=== PATIENT | male | born 1945 | race Caucasian/White ===

== ENCOUNTER 2024-06-30 05:18 | Inpatient (IN) | payer MEDICARE, SELFPAY ==
[2024-06-30] VITALS (16 sets, daily range): BP systolic 103–140; BP diastolic 49–116; BMI 43.4; BMI 43.5
[2024-06-30 01:25] LABS: % Basophils 0.4 % (0-2); % Eosinophils 0.2 % (0-6); % Immature Granulocytes 0.5 % (0-0.5); % Lymphocytes 3.4 % (20.5-51.1); % Monocytes 5.1 % (1.7-9.3); % Neutrophils 90.4 % (42.2-75.2); Absolute Basophils 0.1 10^3/uL (0-0.2); Absolute Immature Granulocytes 0.1 10^3/uL (0-0.05); Absolute Lymphocytes 0.5 10^3/uL (1.2-3.4); Absolute Monocytes 0.7 10^3/uL (0.1-0.6); Absolute Neutrophils 12.3 10^3/uL (1.4-6.5); Hematocrit 45.7 % (39.0-52.0); Hemoglobin 15.7 g/dL (13.0-18.0); Mean Corp Hgb Conc. 34.4 g/dL (33.0-37.0); Mean Corpuscular Hgb 32.3 pg (27.0-31.0); Mean Platelet Volume 9.6 fL (7.4-10.4); Nucleated Red Blood Cells % 0 % (-); Platelet Count 173 10^3/uL (130-400); Red Blood Cell Count 4.86 10^6/uL (4.70-6.10); Red Cell Dist. Width 14.5 % (11.5-14.5); White Blood Cell Count 13.6 10^3/uL (4.8-10.8)
[2024-06-30 01:54] LABS: COVID-19 Antigen Negative (Negative)
[2024-06-30 02:08] LABS: Urine Albumin 3+ (Neg - Trace); Urine Bilirubin Negative (Negative); Urine Character Clear (Clear); Urine Color Yellow; Urine Glucose Negative (Negative); Urine Ketone 2+ (Negative); Urine Leukocyte Negative (Negative); Urine Nitrite Negative (Negative); Urine Occult Blood 3+ (Negative); Urine Urobilinogen Negative (Neg - 1+)
[2024-06-30 02:22] LABS: ALT (SGPT) 17 U/L (0-50); AST (SGOT) 29 U/L (17-59); Albumin 3.8 g/dl (3.5-5.0); Alkaline Phosphatase 58 U/L (38-126); Blood Urea Nitrogen 22 mg/dl (9-20); Calcium 7.9 mg/dl (8.4-10.2); Carbon Dioxide 24 mmol/L (22-30); Chloride 106 mmol/L (98-107); Estimated Creatinine Clearance 114 ml/min; Glucose 99 mg/dl (70-99); Sodium 139 mmol/L (135-145); Total Bilirubin 2.8 mg/dl (0.2-1.3); Total Protein 5.8 g/dl (6.3-8.2); Urine Bacteria Moderate (Negative); Urine Mucus Few; eGFR > 60.00
--- NOTE | 2024-06-30 02:32 | ED.GENMED ---
History of Present Illness
General
Chief Complaint: Weakness
Time Seen by Provider: 06/30/24 00:55
History of Present Illness
History of Present Illness:
78-year-old male with history of CHF, hypertension, hyperlipidemia, A-fib on Eliquis, BPH presenting for generalized weakness. Patient reports that he has been feeling well with chills and cough. Prior to arrival, reports generalized weakness
where his legs gave out and he fell forward, landing on his knees. Denies head injury or loss of consciousness. He was unable to get up so called the ambulance. He denies chest pain or difficulty breathing. Denies abdominal pain. Denies any
burning with urination. Does report some left knee pain after the fall. Denies any known sick contacts. Reports chronic swelling to his lower extremities. Denies any increased swelling. Denies additional acute medical complaints
Past History
Past History
ED Past Medical History: Arrthythmia (Paroxysmal atrial fibrillation), HTN, Hypercholesterolemia and Other (BPH, IBS, kidney stones, venous stasis)
ED Past Surgical History: Appendectomy, Orthopedic (Left hand surgery) and Tonsilectomy
Social History
Tobacco: Former smoker (Many years ago)
Alcohol: Occasional
Personal: ( 3 months ago)
Living: with family (With daughter)
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
Family History
Family History: Other (Noncontributory)
Phy Exam
Physical Exam
Physical Exam:
General: Well-appearing, no clinical signs of dehydration, nontoxic and in no acute distress
HEENT: protecting airway
Neck: appears supple, no midline tenderness
CV: Normal heart rate, regular rhythm
Resp: No accessory muscle use, no increased work of breathing, lungs clear to auscultation bilaterally
Abd: Soft and non-distended, no tenderness to palpation
Extremities: No deformities, bruising over the left patellar region with pain on palpation. Range of motion limited secondary to pain. No tenderness to the hip joint
Neuro: alert, no focal neurologic deficit
: deferred
Rectal: deferred
Psych: Normal affect
Skin: Intact
Course
Orders/Labs/Results
Orders:
Orders
06/30/24 01:04
Complete Blood Count/With Diff Urgent
06/30/24 01:13
CR Chest - 2 Views Urgent
Comment:
Reason For Exam: cough
06/30/24 01:16
COVID-19 Antigen Urgent
Source: Nasal Swab
Influenza A+B Rapid Molecular Urgent
PARMINDER Source: Nasal Swab
Specimen Description:
06/30/24 01:24
Electrocardiogram (*1) Urgent
Reason for Study: Syncope
EKG- Treatment ONCE
06/30/24 01:59
Comprehensive Metabolic Panel Urgent
Troponin I Urgent
Urinalysis Reflex To Culture Urgent
Date Specimen was Collected: 06/30/24
Time Specimen was Collected: 01:52
Urine Microscopic Reflex Cult Urgent
Urine Culture Urgent
PARMINDER Source: U
Specimen Description:
Date Specimen was Collected: 06/30/24
Time Specimen was Collected: 01:52
06/30/24 02:03
CR Knee - Left 4 Or More View* Urgent
Comment:
Reason For Exam: fall
06/30/24 02:58
Azithromycin 500 mg/250 ml [Zithromax Infusion] 500 mg in 250 ml IV NOW
CefTRIAXone [Rocephin] 1,000 mg IV NOW STA
Abnormal Lab Results
06/30/24 06/30/24
01:04 01:59
WBC 13.6 H 10^3/uL
(4.8-10.8)
MCH 32.3 H pg
(27.0-31.0)
Abs Immat Gran (auto) 0.1 H 10^3/uL
(0-0.05)
Absolute Neuts (auto) 12.3 H 10^3/uL
(1.4-6.5)
Absolute Lymphs (auto) 0.5 L 10^3/uL
(1.2-3.4)
Absolute Monos (auto) 0.7 H 10^3/uL
(0.1-0.6)
Neutrophils % 90.4 H %
(42.2-75.2)
Lymphocytes % 3.4 L %
(20.5-51.1)
BUN 22 H mg/dl
(9-20)
Calcium 7.9 L mg/dl
(8.4-10.2)
Total Bilirubin 2.8 H mg/dl
(0.2-1.3)
Total Protein 5.8 L g/dl
(6.3-8.2)
Urine Ketones 2+ A
(Negative)
Ur Occult Blood Reflex 3+ A
(Negative)
Urine RBC 7-10 A /HPF
(0-2)
Urine Bacteria (Reflex) Moderate A
(Negative)
Urine Albumin (Reflex) 3+ A
(Neg - Trace)
06/30/24 01:04
06/30/24 01:59
Vital Signs
Initial and Last Documented VS:
Initial Vital Signs
Temp Pulse Resp BP Pulse Ox
98.2 F 86 17 113/63 95
06/30/24 00:54 06/30/24 00:54 06/30/24 00:54 06/30/24 00:54 06/30/24 00:54
Last Documented Vital Signs
Temp Pulse Resp BP Pulse Ox
99.0 F 82 25 115/62 97
06/30/24 02:48 06/30/24 02:19 06/30/24 02:46 06/30/24 02:45 06/30/24 02:46
MDM/Problems Addressed
MDM/Problems Addressed:
78-year-old male with history of hypertension, hyperlipoidemia, A-fib on Eliquis, BPH presenting after a fall with generalized weakness and inability to ambulate. Vital signs on arrival are normal.
On exam patient is resting comfortably, no acute distress or discomfort. Patient reports the reason he fell was because he had a generalized weakness, and his legs gave out. Notes that he has generally been feeling unwell in the past 2 days,
chills, cough. This reason, suspected infectious quality patient symptoms. Possible viral syndrome versus pneumonia. Will obtain chest x-ray imaging and viral swab. Patient notes that he did not strike his head, no signs of head trauma, no
tenderness to the midline cervical spine. No indication for advanced head imaging. Patient does have a pacemaker, so will interrogate to ensure no normal events that may have caused his fall. Patient with BPH. Will check urinalysis to ensure no
signs of UTI. Will check flu and COVID. Only signs of injury from fall is some bruising to the left knee, suspect musculoskeletal quality. Patient with limited range of motion. Will obtain x-ray.
2:45 - Patient's labs relatively unremarkable. Mild leukocytosis. Chest x-ray with possible RLL pneumonia. Will treat for CAP. COVID and flu negative. Normal chemistry panel with elevated T. bili, however appears to have chronic elevation of
bilirubin. No tenderness to abdomen or concern for acute intra-abdominal pathology. Pacemaker interrogated, no events today. Continue to suspect possible viral syndrome. Patient at this time unable to ambulate. Safe disposition home. Plan for
admission for PT/OT consultation, possible SNF
*EKG
Interpreted by ED Provider?: Yes
EKG Intrepretation Date: 06/30/24
EKG Intrepretation Time: 02:38
Interpretation: normal
Comparison EKG: no changes (02/19/23)
Heart Rate: 103
Rate: tachycardiac
Rhythm: sinus
[place]: normal axis
QRS Pattern: normal QRS
Ischemia: no ischemia
*Critical Care Note
Total Time (30-74mins, 75-104mins- exclusive of procedures): Not Applicable
ED Attending Note
-
Portions of this chart may have been created with voice recognition software.� Occasional wrong word or��sound alike� substitutions may have occurred due to the inherent limitations of voice recognition software.
Discharge Plan
Departure
Prescriptions:
No Action
allopurinol 300 MG tablet
300 mg PO DAILY
dutasteride 0.5 MG capsule
0.5 mg PO DAILY
Xarelto 20 MG tablet
20 mg PO HS
tamsulosin 0.4 MG capsule
0.4 mg PO DAILY
potassium chloride 10 mEq Capsule, Extended Release
10 meq PO DAILY
dofetilide 500 mcg Capsule
500 mcg PO Q12H
sacubitril-valsartan [Entresto] 49-51 mg Tablet
1 tab PO BID
carvedilol 6.25 mg Tablet
6.25 mg PO BID
Interventions
Interventions:
*Risk Screen - Suicide Last Done: 06/30/24 00:50
*General Assessment Last Done: 06/30/24 00:50
*Neglect/Abuse Screening Last Done: 06/30/24 00:50
ED- Fall Risk Assessment Last Done: 06/30/24 00:50
*ED COVID-19 Vaccine History Last Done: 06/30/24 00:50
ED- Cardiac Assessment Last Done: 06/30/24 01:01
ED- Neurological Assessment Last Done: 06/30/24 01:01
ED- Pulmonary Assessment Last Done: 06/30/24 01:01
Discharge Date and Time
Print Language: SINGAPOREAN
[2024-06-30 03:12] LABS: Troponin I 0.074 ng/ml
[2024-06-30] MEDS: ROCEPHIN 1000 MG IV (04:22)
[2024-06-30] MEDS: ZITHROMAX INFUSION 250 IV (04:23)
[2024-06-30] MEDS: NSS 1000 IV (04:23)
--- NOTE | 2024-06-30 04:49 | HPS.HSE ---
Family Physician
-
Family Physician: ROJELIO Baltazar
Chief Complaint
-
Falls and weakness
History of Present Illness
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
the emergency department with acute episode of weakness and then fall with knee injuries bilaterally.
The patient reported being in usual state of health up until 1 year ago when he suddenly felt weak and had difficulty walking due to the weakness. He reports that due to the weakness he was trying to move a chair in his room when he fell and landed
on his knee bilaterally and was unable to get up. He did not strike his head. He denied having any episode of chest pain, palpitations dizziness or lightheadedness. He denies shortness of breath or pleuritic chest pain. After the fall he had an
episode of shaking chills prior to coming to the emergency department.
Patient reports cough that is productive but has been going on for several months and he says is essentially unchanged. He denies having fevers at home. He has no known sick contacts. He had 1 episode of diarrhea that lasted for 1 hour earlier in
the week but was otherwise asymptomatic. Denies any vomiting. Patient denies any rash. He reports chronic lower extremity swelling due to chronic lymphedema which has not changed recently.
He he has chronic BPH with some difficulty with urination but denies any new symptoms such as dysuria, flank pain, fevers or chills.
In the emergency department he was afebrile, he was satting 99% on 2 L. Blood pressure was 110/63 with a pulse of 83. Troponin was 0.074. ECG is a paced rhythm at [address] or T wave changes. CBC notable for leukocytosis to 13,000
but otherwise unremarkable. Electrolytes BUN/creatinine were all within normal range. UA is nondiagnostic with few bacteria but negative nitrites leukocyte Estrace and few squamous. Negative COVID and influenza.
X-rays of the knee shows no dislocations or fractures. Chest x-ray is inconclusive due to body habitus but there is possible right lower lobe infiltrate.
Medical History
Past Medical History
Past Medical History: Reports Arrhythmia (Proximal atrial fibrillation, heart block/sinus pause status post pacemaker), CHF (preserved EF), HTN, Hypercholesterolemia and Other (BPH)
Past Surgical History: Reports Other
Social History
Tobacco: Former Smoker (quit 50 yrs ago)
Alcohol: Occasional
Drug: None
Personal:
Living: With Family
Employment: Retired
Family History
Family History: Not pertinent
Allergies / Home Medications
Allergies reflects when Allergies were last updated in [facility].
Home Medications with original date entered in [facility]
Allergy/Medication List:
Allergies
Allergy/AdvReac Type Severity Reaction Status Date / Time
Cephalosporins Allergy Unknown Verified 06/30/24 00:53
influenza virus vaccine, Allergy gets 'sick Verified 06/30/24 00:53
specific from it
Penicillins Allergy Diarrhea Verified 06/30/24 00:53
pneumococcal vaccine Allergy flu like Verified 06/30/24 00:53
[Pneumococcal Vaccine] symptoms
GRAPE JUICE Allergy Diarrhea Uncoded 06/30/24 00:53
no artificial sweetners Allergy diarrhea Uncoded 06/30/24 00:53
Orlon Allergy Unknown Uncoded 06/30/24 00:53
Home Medications
allopurinol 300 mg tablet 300 mg PO DAILY Gout 12/19/12
dutasteride 0.5 mg capsule 0.5 mg PO DAILY BPH 12/19/12
rivaroxaban 20 mg tablet (Xarelto) 20 mg PO HS Blood Clot Prevention/Tx 12/19/12
tamsulosin 0.4 mg capsule 0.4 mg PO DAILY BPH 12/04/13
dofetilide 500 mcg capsule 500 mcg PO Q12H Arrhythmia 01/16/23
potassium chloride 10 mEq capsule,extended release 10 meq PO DAILY Electrolyte Repletion 01/16/23
sacubitril 49 mg-valsartan 51 mg tablet (Entresto) 1 tab PO BID Heart Disease/Condition 01/16/23
carvedilol 6.25 mg tablet 6.25 mg PO BID 01/17/23
Review of Systems
-
Constitutional: Reports Chills
EENT: Reports No Symptoms
Respiratory: Reports Cough
Cardiac: Reports No Symptoms
Abdomen/GI: Reports No Symptoms
: Reports No Symptoms
Musculoskeletal: Reports Joint Pain
Skin: Reports No Symptoms
Neurological: Reports Weakness
Endocrine: Reports No Symptoms
Hematologic/Lymphatic: Reports No Symptoms
Psych: Reports No Symptoms
Physical Exam
Vital Signs
Vital Signs
Temp Pulse Resp BP Pulse Ox
99.0 F 83 25 110/63 98
06/30/24 02:48 06/30/24 04:15 06/30/24 04:15 06/30/24 04:00 06/30/24 04:15
Physical Exam
General: Well Developed, Well Nourished, No Apparent Distress and Conversant
HEENT: NormoCephalic, Anicteric, Moist mucous membranes, Atraumatic, PERRLA, No Ptosis and Oxygen
Respiratory: Clear, Non Labored Respirations and Decreased Breath Sounds
Cardiac: S1/S2, Regular Rhythm and Peripheral Edema
GI: Soft, Non Tender and Normal Bowel Sounds
Rectal: Deferred by Provider
Genito-urinary: Deferred by me
Musculoskeletal: No Clubbing, No Cyanosis, Edema, Left Lower Extremity and Edema, Right Lower Extremity
Skin: Warm
Neuro: AO x 3 and Nonfocal/grossly intact
Hematologic/Lymphatic: No Lymphadenopathy
Psych: Calm
Laboratory Results
-
06/30/24 01:04
06/30/24 01:59
Laboratory Results
Total Bilirubin 2.8 mg/dl (0.2-1.3) H 06/30/24 01:59
AST 29 U/L (17-59) 06/30/24 01:59
ALT 17 U/L (0-50) 06/30/24 01:59
Alkaline Phosphatase 58 U/L (38-126) 06/30/24 01:59
Troponin I 0.074 ng/ml H* 06/30/24 01:59
Data Reviewed
-
Diagnostic Radiology: Image Personally Visualized and interpreted
Medical Tests (Nuc Med, Echo, EKG etc): Image Personally Visualized and interpreted
Lab Data: Labs Reviewed by me
Old Records: Reviewed
Impression/Plan
-
IMPRESSION:
78 y.o with sudden weakness, cough, chills and a possible RLL infiltrate. Negative flu/covid test. U/A is negative for UTI. Appears euvolemic on exam. Labs stable except for mild trop elevation to 0.07 w/o chest pain or exertional dyspnea.
PLAN:
1. Weakness - Presumed RLL pna. Sudden onset about 24 hours ago.
- admit to telemetry
- check procalcitonin
- continue ceftriaxone/azithromycin for now
- monitor respiratory status
- cough suppression and supprotive measures
- O2 prn (h/o DANIEL not compliant with CPAP)
- PT eval
2. Troponin elevation - No chest pain, ecg changes, nausea/diaphoresis. Unlikley obstructive myocardial injury. Possibly 2/2 infection
- trend troponin
- continue Xarelto for now
- treat with abx as above
-
3. pAFIB
- continue dofetilide, carvedilol
- continue Xarelto
4. CHF - stable
- continue entresto
- continue carvedilol
BPH
- continue tamsulosin and dutasteride
DVT PPX - on Xarelto
Code status - full code
[2024-06-30] MEDS: ZYLOPRIM 300 MG PO (08:18)
[2024-06-30] MEDS: FLOMAX 0.4 MG PO (08:18)
[2024-06-30 09:01] LABS: Troponin I 0.251 ng/ml
[2024-06-30] MEDS: ENTRESTO 49 MG/51 MG 1 TAB PO ×2 (09:36→21:15)
[2024-06-30] MEDS: TIKOSYN 500 MCG PO ×2 (09:36→21:14)
[2024-06-30] MEDS: PROSCAR 5 MG PO (09:41)
[2024-06-30] MEDS: COREG 6.25 MG PO ×2 (10:42→21:13)
[2024-06-30 12:55] LABS: Troponin I 0.184 ng/ml
--- NOTE | 2024-06-30 14:23 | W.PN.HOSP.TC ---
Today's Communication/Plan
-
Cardiology eval
ECHO
PT OT
Francisco bandages lower extremity
Assessment / Plan
Assessment / Plan
78-year-old man with weakness and fall he has morbid obesity and has difficulty walking. He has a productive cough for the past several months
EKG- ATRIAL FIBRILLATION WITH FREQUENT ventricular-paced complexes
T WAVE ABNORMALITY, CONSIDER ANTEROLATERAL ISCHEMIA
T WAVE INVERSION NOW EVIDENT IN ANTEROLATERAL LEADS
CVS: S1-S2 regular
Chest: CTA B/L
Abdomen: Soft, NT / Bowel sounds present
Extremities: Bilateral lower extremity edema left more than right. Chronic venous changes of lower extremities
TRAINMAN: Awake alert and communicating
# Generalized weakness/fall
Knee x-ray degenerative changes. No fracture
Chest x-ray without any pneumonia
Unclear if he had a viral infection
# Slightly elevated troponin-trending down
Cardiology evaluation
Check echo
# Chronic venous stasis changes of lower extremity. Patient states that he cannot take Lasix because he goes to the bathroom too many times. Francisco bandages ordered.
# Pacemaker
# Paroxysmal atrial fibrillation-continue dofetilide, Coreg and Xarelto
History of cardioversion in the past
# Unclear if the patient has CHF-he is on Entresto-cardiology to evaluate
# Enlarged prostate-continue Flomax and dutasteride
# Morbid obesity with a BMI of 43
# Likely has Sleep apnea- Says he needs a seep study
# Diverticulosis
# Nephrolithiasis
# Gout-continue allopurinol
# Ex-smoker
# DVT prophylaxis-continue Xarelto
# Full code
Patient saturations were 100% on 1 L of oxygen I took him off and saturations were 98-99%. Unclear why this was placed
Discussed with daughter and updated
Anticipated Discharge: Within 24 hours
Subjective/Interval History
-
Date of Service: June 30, 2024
Objective Data
-
Labs:
Laboratory Results
06/30/24
01:59
Sodium 139
Potassium 4.0
Chloride 106
Carbon Dioxide 24
BUN 22 H
Creatinine 0.7
Glucose 99
Calcium 7.9 L
Total Bilirubin 2.8 H
AST 29
ALT 17
Alkaline Phosphatase 58
Vital Signs:
Vital Signs
Temp Pulse Resp BP Pulse Ox
98.6 F 76 26 128/74 98
06/30/24 10:49 06/30/24 13:45 06/30/24 13:45 06/30/24 13:00 06/30/24 13:30
I&O
06/29/24 06/30/24 07/01/24
06:59 06:59 06:59
Intake Total 240 / 240
Output Total 150 / 150
Balance 90 / 90
--- NOTE | 2024-06-30 15:16 | CON.CAR ---
Addendum entered and electronically signed by Rogelio Dozier MD 06/30/24 16:49:
Patient seen and examined in collaboration with LEHR LOADER; agree with below.
-78-year-old male with paroxysmal atrial fibrillation (on Xarelto and dofetilide), pacemaker, and hypertension admitted with pneumonia; Cardiology consulted for elevated troponin.
-Echocardiogram today shows overall normal cardiac function.
-Troponin elevation is most likely secondary to acute nonischemic myocardial injury in the setting of pneumonia and elevated blood pressure (140/116 mmHg).
-Continue current doses of dofetilide and carvedilol for rhythm management.
-The patient can follow-up with his primary Residential Appliance Repair Technician as an outpatient; no further cardiac recommendations at this time.
-Treatment of pneumonia as per primary team.
Original Note:
Consultation
Consultation Request
Date/Time Consultation Requested: 06/30/24 1428
Date/Time Consultation Performed: 06/30/24 1530
Requesting Provider: Dr. Ceballos
Performing Provider: Marina SERRATO for Dr. Dozier
Reason for Consultation: abnormal troponin
Medical History
-
Chief Complaint: weakness and chills
History of Present Illness:
78 y/o male (Dr. Glover) with PAF on dofetilide and Xarelto, atrial tachycardia, hypertension, SSS s/p BS pacemaker, chronic back pain who is here for evaluation of weakness that started yesterday AM with associated chills. He is being treated for
PNA. We are consulted for abnormal troponin. He has no CP or SOB.
Past Medical History
Past Medical History: Arrhythmias and HTN
Social History
Tobacco: Former Smoker
Family History
Family History: Reviewed & Not Pertinent
Allergies / Home Medications
Allergy/AdvReac Type Severity Reaction Status Date / Time
Cephalosporins Allergy Unknown Verified 06/30/24 00:53
influenza virus vaccine, Allergy gets 'sick Verified 06/30/24 00:53
specific from it
Penicillins Allergy Diarrhea Verified 06/30/24 00:53
pneumococcal vaccine Allergy flu like Verified 06/30/24 00:53
[Pneumococcal Vaccine] symptoms
GRAPE JUICE Allergy Diarrhea Uncoded 06/30/24 00:53
no artificial sweetners Allergy diarrhea Uncoded 06/30/24 00:53
Orlon Allergy Unknown Uncoded 06/30/24 00:53
�Medication �Instructions �Recorded �Confirmed �Type
allopurinol 300 mg tablet 300 mg PO DAILY Gout 12/19/12 06/30/24 History
dutasteride 0.5 mg capsule 0.5 mg PO DAILY BPH 12/19/12 06/30/24 History
rivaroxaban 20 mg tablet (Xarelto) 20 mg PO HS Blood Clot 12/19/12 06/30/24 History
Prevention/Tx
tamsulosin 0.4 mg capsule 0.4 mg PO DAILY BPH 12/04/13 06/30/24 History
dofetilide 500 mcg capsule 500 mcg PO Q12H Arrhythmia 01/16/23 06/30/24 History
potassium chloride 10 mEq 10 meq PO DAILY Electrolyte 01/16/23 06/30/24 History
capsule,extended release Repletion
sacubitril 49 mg-valsartan 51 mg 1 tab PO BID Heart 01/16/23 06/30/24 History
tablet (Entresto) Disease/Condition
carvedilol 6.25 mg tablet 6.25 mg PO BID 01/17/23 06/30/24 History
Review of Systems
-
History Source: Patient
All other systems: Negative unless noted
Constitutional: Chills
Musculoskeletal: Other (back pain, chronic)
Neurological: Weakness
Physical Exam
Vital Signs
Temp Pulse Resp BP Pulse Ox
98.6 F 76 26 128/74 98
06/30/24 10:49 06/30/24 13:45 06/30/24 13:45 06/30/24 13:00 06/30/24 13:30
Lab Results
06/30/24 01:04
06/30/24 01:59
Troponin I 0.184 ng/ml H* D 06/30/24 12:19
Physical Exam
General: Well Developed, Well Nourished and No Apparent Distress
HEENT: Normocephalic and Anicteric
Respiratory: Clear and Non Labored Respirations
Cardiac: Regular Rhythm
Musculoskeletal: Edema (mild - moderate BLE edema, chronic and unchanged per patient )
Skin: Warm and Dry
Neuro: AO x 3
Psych: Calm
Impression / Plan
-
Weakness, chills:
-being treated for PNA with IV abx
-management per primary team
Abnormal troponin:
-denies any CP or SOB
-acute non-ischemic myocardial injury in the setting of acute illness with PNA
-checking echo
HTN:
-monitor on medical therapy
PAF:
-was in AFIB, now stable in SR
-continue dofetilide and Xarelto, as well as BB
-follow telemetry
Data Reviewed
-
EKG: Tracing Personally Visualized and interpreted (AFIB with V paced complexes, t wave abnormality v3-v4)
Radiology: Report Reviewed by me (CXR: Low lung volumes. No acute cardiopulmonary process.)
Labs: Labs Reviewed by me
--- NOTE | 2024-06-30 16:18 | CARDSERVLU ---
Echocardiogram with Lumason completed after protocol screening completed. Allergies verified.
Patent IV site: left Hand__
IV site flushed with 0.9% NaCl pre and post administration.
Diluted bolus method utilized to enhance visualization of ventricular campa.
Total volume given: __4__ mL
Patient tolerated all procedures well without complications.
[2024-06-30] MEDS: ROXICODONE 5 MG PO (17:32)
[2024-06-30] MEDS: XARELTO 20 MG PO (21:14)
[2024-06-30] MEDS: TIKOSYN PO (21:25)
[2024-07-01] VITALS (8 sets, daily range): BP systolic 111–138; BP diastolic 72–85; PULSE 77–82; O2SAT 94–95; BMI 43.5
[2024-07-01] MEDS: ROXICODONE 5 MG PO (02:09)
--- NOTE | 2024-07-01 06:02 | PTCARENOTE ---
late entry: 2030 received pt from er to room 1141-1, placed on tele, admission assessment completed. pt's daughter at bs, oriented to call alvarenga and call alvarenga with in reach
[2024-07-01 07:37] LABS: Hematocrit 42.1 % (39.0-52.0); Hemoglobin 14.2 g/dL (13.0-18.0); Mean Corp Hgb Conc. 33.7 g/dL (33.0-37.0); Mean Corpuscular Hgb 32.2 pg (27.0-31.0); Mean Corpuscular Volume 95.5 fL (80.0-94.0); Mean Platelet Volume 10.4 fL (7.4-10.4); Platelet Count 163 10^3/uL (130-400); Red Blood Cell Count 4.41 10^6/uL (4.70-6.10); Red Cell Dist. Width 14.5 % (11.5-14.5); White Blood Cell Count 9.5 10^3/uL (4.8-10.8)
[2024-07-01 07:59] LABS: NT-proBNP 1990 pg/ml
[2024-07-01 08:00] LABS: Blood Urea Nitrogen 19 mg/dl (9-20); Calcium 8.1 mg/dl (8.4-10.2); Carbon Dioxide 25 mmol/L (22-30); Chloride 103 mmol/L (98-107); Estimated Creatinine Clearance 112 ml/min; Glucose 110 mg/dl (70-99); Potassium 3.7 mmol/L (3.5-5.1); Sodium 138 mmol/L (135-145); eGFR > 60.00
[2024-07-01 08:18] LABS: Procalcitonin 1.18 ng/ml (0.0-0.25)
[2024-07-01] MEDS: ZYLOPRIM 300 MG PO (08:53)
[2024-07-01] MEDS: FLOMAX 0.4 MG PO (08:53)
[2024-07-01] MEDS: PROSCAR 5 MG PO (08:53)
[2024-07-01] MEDS: ENTRESTO 49 MG/51 MG 1 TAB PO ×2 (08:53→19:24)
[2024-07-01] MEDS: TIKOSYN 500 MCG PO ×2 (08:54→19:25)
[2024-07-01] MEDS: COREG 6.25 MG PO ×2 (08:54→19:24)
[2024-07-01] MEDS: DESENEX/MITRAZOL/ZEASORB 1 APPLIC TOPICAL ×2 (08:55→19:25)
[2024-07-01] MEDS: TYLENOL 650 MG PO ×3 (08:57→20:45)
--- NOTE | 2024-07-01 10:03 | W.PN.HOSP.TC ---
Today's Communication/Plan
-
Ancef
Francisco bandages
1 dose of Lasix
Assessment / Plan
Assessment / Plan
78-year-old man with weakness and fall he has morbid obesity and has difficulty walking. He has a productive cough for the past several months
EKG- ATRIAL FIBRILLATION WITH FREQUENT ventricular-paced complexes
T WAVE ABNORMALITY, CONSIDER ANTEROLATERAL ISCHEMIA
T WAVE INVERSION NOW EVIDENT IN ANTEROLATERAL LEADS
CVS: S1-S2 irregular
Chest: CTA B/L
Abdomen: Soft, NT / Bowel sounds present
Extremities: Bilateral lower extremity edema left more than right. Chronic venous changes of lower extremities, redness and warmth in left lower extremity
GEOSPATIAL SCIENTIST: Awake alert and communicating
# Left lower extremity cellulitis-Ancef ordered. Tolerated ceftriaxone
Blood cultures prior to antibiotics
# Generalized weakness/fall
Knee x-ray degenerative changes. No fracture
Chest x-ray without any pneumonia
X-ray of the spine without any acute changes
# Slightly elevated troponin-trending down
Cardiology evaluation appreciated
Echo 06/30/2024-normal LV size and mild concentric remodeling. Asymmetric septal hypertrophy with normal LV systolic function. EF 50 to 55%. Stage II diastolic dysfunction. Normal RV size and function. Calcified possibly bicuspid aortic valve
with sclerosis without stenosis. IVC is moderately dilated and blunted with inspiratory collapse. Right atrial pressure 15 mmHg
# Chronic venous stasis changes of lower extremity. Patient states that he cannot take Lasix because he goes to the bathroom too many times. Francisco bandages ordered. Will give 1 dose of Lasix
# Pacemaker
# Paroxysmal atrial fibrillation-continue dofetilide, Coreg and Xarelto
History of cardioversion in the past
# Unclear if the patient has CHF-he is on Entresto-cardiology to evaluate
# Enlarged prostate-continue Flomax and dutasteride
# Morbid obesity with a BMI of 43
# Likely has Sleep apnea- Says he needs a seep study
# Diverticulosis
# Nephrolithiasis
# Gout-continue allopurinol
# Ex-smoker
# DVT prophylaxis-continue Xarelto
# Full code
D/W RN at bed side
Discussed with daughter and updated again
Anticipated Discharge: Within 24 hours
Subjective/Interval History
-
Date of Service: July 01, 2024
Objective Data
-
Labs:
Laboratory Results
07/01/24
07:01
WBC 9.5
Hgb 14.2
Hct 42.1
Plt Count 163
Sodium 138
Potassium 3.7
Chloride 103
Carbon Dioxide 25
BUN 19
Creatinine 0.7
Glucose 110 H
Calcium 8.1 L
Vital Signs:
Vital Signs
Temp Pulse Resp BP Pulse Ox
98.9 F 80 22 125/83 96
07/01/24 07:40 07/01/24 07:40 07/01/24 07:40 07/01/24 07:40 07/01/24 07:40
I&O
06/30/24 07/01/24 07/02/24
06:59 06:59 06:59
Intake Total 240 / 240
Output Total 250 / 250 150 / 150
Balance -10 / -10 -150 / -150
[2024-07-01] MEDS: ANCEF 10 IV ×2 (11:01→19:24)
[2024-07-01] MEDS: LASIX 20 MG IV (11:01)
[2024-07-01] MEDS: KCL 20 MEQ PO (11:01)
--- NOTE | 2024-07-01 15:03 | PTCARENOTE ---
pt worked with PT/OT this AM OOB to chair. ambulated to bathroom. no change in assessment
[2024-07-01] MEDS: XARELTO 20 MG PO (19:25)
[2024-07-01] MEDS: ROXICODONE PO (19:25)
[2024-07-02 03:00] VITALS: BP 121/73
[2024-07-02] MEDS: ANCEF 10 IV ×3 (03:46→19:36)
[2024-07-02 06:00] VITALS: BMI 43.0
[2024-07-02] MEDS: TYLENOL 650 MG PO (06:35)
[2024-07-02 07:33] VITALS: BP 132/76
[2024-07-02] MEDS: ZYLOPRIM 300 MG PO (08:22)
[2024-07-02] MEDS: COREG 6.25 MG PO ×2 (08:23→19:35)
[2024-07-02] MEDS: NON-FORMULARY ITEM 1 UNIT PO (08:23)
[2024-07-02] MEDS: ENTRESTO 49 MG/51 MG 1 TAB PO ×2 (08:23→19:36)
[2024-07-02] MEDS: FLOMAX 0.4 MG PO (08:23)
[2024-07-02] MEDS: TIKOSYN 500 MCG PO ×2 (08:23→19:34)
[2024-07-02] MEDS: DESENEX/MITRAZOL/ZEASORB 1 APPLIC TOPICAL ×2 (08:24→19:36)
--- NOTE | 2024-07-02 08:33 | CM ---
Patient seen bedside. IA completed.
Patient lives with daughter in a 2 story home with 2 steps to enter.
Patient was independent in all amb and adls prior to admission.
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
Patient has had [facility] in the past; no hx of SNF
Currently back pain is significantly impacting his mobility; SNF recommended by therapists.
Pt is hopeful to return home if his pain improves, but willing to go to SNF if needed.
CM will continue to follow to coordinate all discharge planning needs.
PCP: Dr Padmaja Jacobson
Pharmacy: [address]
[2024-07-02 11:19] VITALS: BP 113/72
[2024-07-02] MEDS: FLEXERIL 5 MG PO ×2 (11:23→21:08)
[2024-07-02] MEDS: LIDOCAINE 4% PATCH 1 PATCH TOPICAL (11:25)
--- NOTE | 2024-07-02 12:03 | W.PN.HOSP.TC ---
Today's Communication/Plan
-
MRI
OOB to chair.
Assessment / Plan
Assessment / Plan
78-year-old man with weakness and fall he has morbid obesity and has difficulty walking. He has a productive cough for the past several months
EKG- ATRIAL FIBRILLATION WITH FREQUENT ventricular-paced complexes
T WAVE ABNORMALITY, CONSIDER ANTEROLATERAL ISCHEMIA
T WAVE INVERSION NOW EVIDENT IN ANTEROLATERAL LEADS
CVS: S1-S2 irregular
Chest: CTA B/L
Abdomen: Soft, NT / Bowel sounds present
Extremities: Bilateral lower extremity edema left more than right. Chronic venous changes of lower extremities, redness and warmth in left lower extremity. Right medial skin break
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
# Left lower extremity cellulitis-Ancef ordered. Tolerated ceftriaxone
Blood cultures pending
# Generalized weakness/fall
Knee x-ray degenerative changes. No fracture
Chest x-ray without any pneumonia
X-ray of the spine without any acute changes
# Slightly elevated troponin-trending down
Cardiology evaluation appreciated
Echo 06/30/2024-normal LV size and mild concentric remodeling. Asymmetric septal hypertrophy with normal LV systolic function. EF 50 to 55%. Stage II diastolic dysfunction. Normal RV size and function. Calcified possibly bicuspid aortic valve
with sclerosis without stenosis. IVC is moderately dilated and blunted with inspiratory collapse. Right atrial pressure 15 mmHg
# Back pain - MRI spine. Flexeril, Lidoderm patch,
# Chronic venous stasis changes of lower extremity. Patient states that he cannot take Lasix because he goes to the bathroom too many times. Francisco bandages ordered. Will give 1 dose of Lasix after BMP today
# Pacemaker
# Paroxysmal atrial fibrillation-continue dofetilide, Coreg and Xarelto. History of cardioversion in the past
# Unclear if the patient has CHF-he is on Entresto-Cardiology
# Enlarged prostate-continue Flomax and dutasteride
# Morbid obesity with a BMI of 43
# Likely has Sleep apnea- Says he needs a seep study.
# Diverticulosis
# Nephrolithiasis
# Gout-continue allopurinol
# Ex-smoker
# DVT prophylaxis-continue Xarelto
# Full code
D/W RN at bed side
Case management eval for SNF
Spoke to patient's daughter who is a social media manager at [employer]. She feels that he might still be a little bit confused at nighttime. Discussed about PT findings. She really wants him to be home with outpatient therapy rather than
going to rehab as she does not feel that he is going to do well in a rehab
Anticipated Discharge: Within 24 hours
Subjective/Interval History
-
Date of Service: July 02, 2024
Objective Data
-
Vital Signs:
Vital Signs
Temp Pulse Resp BP Pulse Ox
97.4 F 67 16 113/72 97
07/02/24 11:19 07/02/24 11:19 07/02/24 11:19 07/02/24 11:19 07/02/24 11:19
I&O
07/01/24 07/02/24 07/03/24
06:59 06:59 06:59
Intake Total 240 / 240
Output Total 250 / 250 1050 / 1050
Balance -10 / -10 -1050 / -1050
[2024-07-02 12:50] LABS: Hematocrit 41.8 % (39.0-52.0); Hemoglobin 14.3 g/dL (13.0-18.0); Mean Corp Hgb Conc. 34.2 g/dL (33.0-37.0); Mean Corpuscular Hgb 32.3 pg (27.0-31.0); Mean Corpuscular Volume 94.4 fL (80.0-94.0); Platelet Count 189 10^3/uL (130-400); Red Blood Cell Count 4.43 10^6/uL (4.70-6.10); Red Cell Dist. Width 14.5 % (11.5-14.5); White Blood Cell Count 8.2 10^3/uL (4.8-10.8)
[2024-07-02 14:00] LABS: Blood Urea Nitrogen 18 mg/dl (9-20); Calcium 8.5 mg/dl (8.4-10.2); Carbon Dioxide 25 mmol/L (22-30); Chloride 102 mmol/L (98-107); Estimated Creatinine Clearance 112 ml/min; Glucose 107 mg/dl (70-99); Sodium 137 mmol/L (135-145); eGFR > 60.00
[2024-07-02 15:48] VITALS: BP 120/80
[2024-07-02 19:00] VITALS: BP 105/69
[2024-07-02] MEDS: XARELTO 20 MG PO (19:34)
[2024-07-02] MEDS: TYLENOL 1000 MG PO (19:39)
[2024-07-02 23:00] VITALS: BP 107/70
[2024-07-03] VITALS (7 sets, daily range): BP systolic 106–130; BP diastolic 64–78; PULSE 83; O2SAT 97; BMI 43.1; BMI 43.2
--- NOTE | 2024-07-03 01:36 | PTCARENOTE ---
Pt with 35 bt run of Vtach while sleeping. pt asymptomatic, no chest pain, palpitations or discomfort. Vital signs stable-110/73, hr 85, 97% RA, 98.4 temp, 16 RR. Notified MACHINE BASTER. Labs ordered for AM. Will continue to monitor.
[2024-07-03] MEDS: ANCEF 10 IV ×3 (03:14→20:26)
[2024-07-03] MEDS: ZYLOPRIM 300 MG PO (08:21)
[2024-07-03] MEDS: COREG 6.25 MG PO ×2 (08:21→20:26)
[2024-07-03] MEDS: FLOMAX 0.4 MG PO (08:21)
[2024-07-03] MEDS: TIKOSYN 500 MCG PO ×2 (08:21→20:26)
[2024-07-03] MEDS: ENTRESTO 49 MG/51 MG 1 TAB PO ×2 (08:21→20:31)
[2024-07-03] MEDS: LIDOCAINE 4% PATCH 1 PATCH TOPICAL (08:22)
[2024-07-03] MEDS: NON-FORMULARY ITEM 1 UNIT PO (08:27)
[2024-07-03] MEDS: DESENEX/MITRAZOL/ZEASORB 1 APPLIC TOPICAL ×2 (08:28→20:26)
[2024-07-03 09:10] LABS: Hematocrit 40.6 % (39.0-52.0); Hemoglobin 13.9 g/dL (13.0-18.0); Mean Corp Hgb Conc. 34.2 g/dL (33.0-37.0); Mean Corpuscular Hgb 32.5 pg (27.0-31.0); Mean Corpuscular Volume 94.9 fL (80.0-94.0); Mean Platelet Volume 10.5 fL (7.4-10.4); Platelet Count 193 10^3/uL (130-400); Red Blood Cell Count 4.28 10^6/uL (4.70-6.10); Red Cell Dist. Width 14.4 % (11.5-14.5); White Blood Cell Count 7.2 10^3/uL (4.8-10.8)
[2024-07-03 10:10] LABS: Blood Urea Nitrogen 17 mg/dl (9-20); Calcium 7.9 mg/dl (8.4-10.2); Carbon Dioxide 28 mmol/L (22-30); Chloride 101 mmol/L (98-107); Estimated Creatinine Clearance 112 ml/min; Glucose 87 mg/dl (70-99); Magnesium 2.1 mg/dl (1.6-2.3); Sodium 138 mmol/L (135-145); eGFR > 60.00
--- NOTE | 2024-07-03 12:16 | CM ---
Addendum entered by Meryl Mcdermott 07/03/24 16:09:
Plan: home with VN, when stable.
Original Note:
Patient seen bedside. Discussed PT recommendations.
Patient would prefer gome with VN and daughter agreeable as long as he can walk.
If recommendation continues to be skilled rehab they are both in agreement.
Referrals sent via [facility] to see bed availability.
Also agreeable to [facility] if HC is recommended.
Plan: skilled vs home with VN depebding on PT/OT recommendations.
--- NOTE | 2024-07-03 13:40 | W.PN.HOSP.TC ---
Today's Communication/Plan
-
PT OT eval again
Lasix
MRI
Possible discharge home tomorrow
Assessment / Plan
Assessment / Plan
78-year-old man with weakness and fall he has morbid obesity and has difficulty walking. He has a productive cough for the past several months
EKG- ATRIAL FIBRILLATION WITH FREQUENT ventricular-paced complexes
T WAVE ABNORMALITY, CONSIDER ANTEROLATERAL ISCHEMIA
T WAVE INVERSION NOW EVIDENT IN ANTEROLATERAL LEADS
CVS: S1-S2 irregular
Chest: CTA B/L
Abdomen: Soft, NT / Bowel sounds present
Extremities: Bilateral lower extremity edema left more than right. Chronic venous changes of lower extremities, redness and warmth in left lower extremity. Right medial skin break
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
# Left lower extremity cellulitis-Ancef ( Tolerated ceftriaxone in past)
Blood cultures pending
# Generalized weakness/fall
Knee x-ray degenerative changes. No fracture
Chest x-ray without any pneumonia
X-ray of the spine without any acute changes
# Slightly elevated troponin-trending down
Cardiology evaluation appreciated
Echo 06/30/2024-normal LV size and mild concentric remodeling. Asymmetric septal hypertrophy with normal LV systolic function. EF 50 to 55%. Stage II diastolic dysfunction. Normal RV size and function. Calcified possibly bicuspid aortic valve
with sclerosis without stenosis. IVC is moderately dilated and blunted with inspiratory collapse. Right atrial pressure 15 mmHg
# Back pain - MRI spine. Flexeril, Lidoderm patch.
# Chronic venous stasis changes of lower extremity. Patient states that he cannot take Lasix because he goes to the bathroom too many times. Francisco bandages . Will give 1 dose of Lasix .
# Pacemaker
# Paroxysmal atrial fibrillation-continue dofetilide, Coreg and Xarelto. History of cardioversion in the past
# Unclear if the patient has CHF-he is on Entresto-Cardiology
# Enlarged prostate-continue Flomax and dutasteride
# Morbid obesity with a BMI of 43
# Likely has Sleep apnea- Says he needs a seep study.
# Diverticulosis
# Nephrolithiasis
# Gout-continue allopurinol
# Ex-smoker
# DVT prophylaxis-continue Xarelto
# Full code
D/W RN at bed side
Case management Eval for SNF
Spoke to patient's daughter who is a social media campaign manager at [employer].
Discussed about PT findings. She really wants him to be home with outpatient therapy rather than going to rehab as she does not feel that he is going to do well in a rehab.
Anticipated Discharge: Within 24 hours
Subjective/Interval History
-
Date of Service: July 03, 2024
Objective Data
-
Labs:
Laboratory Results
07/03/24
08:19
WBC 7.2
Hgb 13.9
Hct 40.6
Plt Count 193
Sodium 138
Potassium 4.0
Chloride 101
Carbon Dioxide 28
BUN 17
Creatinine 0.7
Glucose 87
Calcium 7.9 L
Vital Signs:
Vital Signs
Temp Pulse Resp BP Pulse Ox
98.0 F 77 17 110/64 97
07/03/24 11:53 07/03/24 11:53 07/03/24 11:53 07/03/24 11:53 07/03/24 11:53
I&O
07/02/24 07/03/24 07/04/24
06:59 06:59 06:59
Intake Total 960 / 960 300 / 300
Output Total 1050 / 1050 700 / 700
Balance -1050 / -1050 260 / 260 300 / 300
[2024-07-03] MEDS: LASIX 40 MG IV (14:10)
[2024-07-03 14:33] LABS: Vitamin D, 25-OH*** 26.9 ng/mL (30-80)
[2024-07-03 15:06] LABS: Vitamin B12 442 pg/ml (239-931)
[2024-07-03] MEDS: XARELTO 20 MG PO (23:00)
[2024-07-04] MEDS: TYLENOL 1000 MG PO ×3 (01:12→22:07)
[2024-07-04 03:00] VITALS: BP 125/70
[2024-07-04] MEDS: ANCEF 10 IV ×2 (03:53→12:10)
[2024-07-04 05:52] VITALS: BMI 43.0
[2024-07-04 07:00] VITALS: BP 123/82
--- NOTE | 2024-07-04 09:44 | CM ---
Patient seen bedside.
Patient for MRI today (pending)
IMM reviewed
Accepted by home care agency.
Daughter will transport.
Plan; home with [facility]
[2024-07-04] MEDS: FLOMAX 0.4 MG PO (09:49)
[2024-07-04] MEDS: TIKOSYN 500 MCG PO ×2 (09:49→20:37)
[2024-07-04] MEDS: LIDOCAINE 4% PATCH 1 PATCH TOPICAL (09:49)
[2024-07-04] MEDS: COREG 6.25 MG PO ×2 (09:49→20:37)
[2024-07-04] MEDS: ENTRESTO 49 MG/51 MG 1 TAB PO ×2 (09:49→20:36)
[2024-07-04] MEDS: ZYLOPRIM 300 MG PO (09:49)
[2024-07-04] MEDS: DESENEX/MITRAZOL/ZEASORB 1 APPLIC TOPICAL ×2 (09:50→20:37)
[2024-07-04] MEDS: NON-FORMULARY ITEM 1 UNIT PO (09:50)
[2024-07-04 11:00] VITALS: BP 118/62; BP 148/78; PULSE 74; O2SAT 94
--- NOTE | 2024-07-04 11:56 | W.PN.HOSP.TC ---
Today's Communication/Plan
-
MRI spine today
Assessment / Plan
Assessment / Plan
78-year-old man with weakness and fall he has morbid obesity and has difficulty walking. He has a productive cough for the past several months
EKG- ATRIAL FIBRILLATION WITH FREQUENT ventricular-paced complexes
T WAVE ABNORMALITY, CONSIDER ANTEROLATERAL ISCHEMIA
T WAVE INVERSION NOW EVIDENT IN ANTEROLATERAL LEADS
CVS: S1-S2 irregular
Chest: CTA B/L
Abdomen: Soft, NT / Bowel sounds present
Extremities: Bilateral lower extremity edema left more than right. Chronic venous changes of lower extremities, redness and warmth in left lower extremity. Right medial skin break
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
# Left lower extremity cellulitis-Ancef ( Tolerated ceftriaxone in past)
Blood cultures neg
# Generalized weakness/fall
Knee x-ray degenerative changes. No fracture
Chest x-ray without any pneumonia
X-ray of the spine without any acute changes
# Slightly elevated troponin-trending down
Cardiology evaluation appreciated
Echo 06/30/2024-normal LV size and mild concentric remodeling. Asymmetric septal hypertrophy with normal LV systolic function. EF 50 to 55%. Stage II diastolic dysfunction. Normal RV size and function. Calcified possibly bicuspid aortic valve
with sclerosis without stenosis. IVC is moderately dilated and blunted with inspiratory collapse. Right atrial pressure 15 mmHg
# Back pain - MRI spine. Flexeril, Lidoderm patch.
# Chronic venous stasis changes of lower extremity. Patient states that he cannot take Lasix because he goes to the bathroom too many times. Francisco bandages . Will give 1 dose of Lasix .
# Pacemaker
# Paroxysmal atrial fibrillation-continue dofetilide, Coreg and Xarelto. History of cardioversion in the past
# Unclear if the patient has CHF-he is on Entresto-Cardiology eval noted.
# Enlarged prostate-continue Flomax and dutasteride
# Morbid obesity with a BMI of 43
# Likely has Sleep apnea- Says he needs a seep study.
# Diverticulosis
# Nephrolithiasis
# Gout-continue allopurinol
# Ex-smoker
# DVT prophylaxis-continue Xarelto
# Full code
D/W RN at bed side
Spoke to patient's daughter who is a social welfare clerk at [employer].
Discussed about PT findings. She really wants him to be home with outpatient therapy rather than going to rehab as she does not feel that he is going to do well in a rehab.
Anticipated Discharge: Today
Subjective/Interval History
-
Date of Service: July 04, 2024
Objective Data
-
Vital Signs:
Vital Signs
Temp Pulse Resp BP Pulse Ox
98.2 F 82 16 123/82 94
07/04/24 07:00 07/04/24 07:00 07/04/24 07:00 07/04/24 07:00 07/04/24 07:00
I&O
07/03/24 07/04/24 07/05/24
06:59 06:59 06:59
Intake Total 960 / 960 780 / 780
Output Total 700 / 700 300 / 300 200 / 200
Balance 260 / 260 480 / 480 -200 / -200
[2024-07-04] MEDS: LASIX 40 MG IV (12:10)
--- NOTE | 2024-07-04 12:46 | PN.CDI ---
CDI
- -
CDI:
Physician Documentation Request
Admit Date: 06/30/24 05:18
Dear Doctor Tucker,
Patient admitted with left lower extremity cellulitis.
2/4 PN, 'Left lower extremity cellulitis-Ancef.'
On admission, WBC 13.6 and RR> 90.
Please clarify which of the following most accurately describes the status of the patient's infection:
Sepsis, POA
Cellulitis only
Other
Sepsis
- Systemic manifestations of infection, with 2 or more SIRS criteria which include:
- Fever >100.4 degrees F or hypothermia < 96.8 degrees F
- Leukocytosis - WBC > 12,000 or leukopenia - WBC < 4,000 or > 10% bands
- Tachycardia > 90 beats per minute
- Tachypnea - RR > 20 breaths per minute or PaCO2 , 32mmHg
Source: Merck Manual 2013
- Indicate the known or suspected organism
- Indicate the known or suspected underlying infection, such cellulitis
Localized Infection Only, Without Systemic Illness
- indicate the site/source, such as cellulitis
Other
Use of terms such as suspected, likely, concern for, or probable (associated with a specific diagnosis that is being evaluated, monitored, or treated as if it exists) are acceptable and can be coded in the inpatient setting, when documented at the
time of discharge.
Thank you,
Ashley HUNGN,RN,CCDS
CDI Specialist
Available via tiger text
Please use your independent medical judgment in providing your response.
[2024-07-04 13:00] VITALS: BMI 43.0
[2024-07-04 15:00] VITALS: BP 143/73
--- NOTE | 2024-07-04 15:49 | W.PN.UPDATE ---
Update Note
Progress Note Update
MRI showing discitis/osteomyelitis.
Blood cultures were negative.
Also there Is dilatation of the right renal pelvis. Patient also has bladder calculus therefore get a CAT scan of the abdomen and pelvis to rule out obstruction
Urinalysis was not consistent with a UTI
Daughter updated with results
Infectious disease consultation requested
Patient was on Ancef to treat left lower extremity cellulitis
If we need to aspirate disc we need to hold Xarelto
Also yield may not be great given patient was on prior antibiotics.
Hold any further antibiotics from now on.
Will check with IRAD
Time spent for the day more than 50 Min
--- NOTE | 2024-07-04 17:23 | CON.ID ---
Consultation
-
Date/Time Consultation Requested: 07/04/24 15:45
Date/Time Consultation Performed: 07/04/24 17:24
Requesting Provider: Dr Ceballos
Performing Provider: Dr Titus
Reason for Consultation: possible OM/discitis
Chief Complaint / Past History
Chief Complaint
Falls and weakness
History of Present Illness
Mr Khan is a 78 year old male with history of CHF, pacemaker placement, class III obesity who presented here on 06/30 for weakness and a fall. He has been struggling with weakness for about 1 year. Then the day of arrival he was trying to move a
chair when he fell and landed on his knees. He then felt shaking chills. EMS was called and he presented here. Reports a chronic productive cough, chronic diarrhea - treated with imodium, and chronic LLE redness and swelling for years which he
says is at his baseline. Denies: nicolle fevers, vomiting, dysuria, flank pain. He complained of acute point tenderness over the lumbar spine. No history of bacteremia elsewhere that he is aware of. Has required some dental work for cavities over
the last year but known known odontogenic infections. No hardwear beyond the pacemaker
Since arrival here no recorded fevers, bp overall stable, wbc on arrival 13.6 normalized on day 2 to wbc at 9.5, hgb 15.7, plt 173, L shift was present on arrival, na 139, cr 0.7, t bili 2.8, ast 29, alt 17, alk phos 58, procal 1.2, ua no pyuria but
moderate bacturia, covid ag negative, CXR no discrete infiltrates lumbar spine mri without contrast: L4-5 which are suspicious for discitis and osteomyelitis. No evidence for epidural or paraspinal abscess; DJD of the lumbar spine, Suggestion of
moderate dilation of the right renal pelvis and possibly the right calyces, although without dilation of the visualized proximal to mid right ureter. As warranted, further evaluation with CT of the abdomen and pelvis could be considered- bladder
calculus seen on previous xray. He was initially started on ceftiraxone and azithromycin for possible pneumonia which he continued for 1 day. Then on HD 2 he started on cefazolin for possible cellulitis which he has completed approximately 3 days
of therapy. Cefazolin is now on hold and IR has been consulted for biopsy. ID is consulted for assistance with management
Past History
Additional Past Medical History:
Proximal atrial fibrillation, heart block/sinus pause status post pacemaker), CHF (preserved EF), HTN, Hypercholesterolemia and Other (BPH)
Additional Past Surgical History:
pacemaker
Allergy History:
influenza virus vaccine, specific Allergy (Verified 06/30/24 00:53)
gets 'sick from it
Penicillins Allergy (Verified 06/30/24 00:53)
Diarrhea
pneumococcal vaccine [Pneumococcal Vaccine] Allergy (Verified 06/30/24 00:53)
flu like symptoms
GRAPE JUICE Allergy (Uncoded 06/30/24 00:53)
Diarrhea
no artificial sweetners Allergy (Uncoded 06/30/24 00:53)
diarrhea
Orlon Allergy (Uncoded 06/30/24 00:53)
Unknown
Medications Reviewed: Yes
Social History
Tobacco: Former Smoker
Alcohol: Occasional
Drug: None
Family History
Family History: Not Pertinent
Review of Systems
Review of Systems
General: Fever and Chills
All systems: All other systems were reviewed and were negative
Vital Signs
Temp Pulse Resp BP Pulse Ox
98.4 F 88 17 143/73 97
07/04/24 15:00 07/04/24 15:00 07/04/24 15:00 07/04/24 15:00 07/04/24 15:00
Physical Exam
Physical Exam
Constitutional: No Acute Distress
Cardiovascular: Regular Rate and S1/S2; Negative Murmur or Rub
Pulmonary: Clear and Symmetric; Negative Wheezes, Rales or Rhonchi
Gastrointestinal: Soft, Non Tender, Non Distended and Normal Bowel Sounds
Musculoskeletal: Spinal Tenderness (lumbar point tenderness)
Skin: Warm and Dry; Negative Rash or Jaundice
Neurological: Awake
Lab / Diagnostic Study Results
07/03/24 08:19
07/03/24 08:19
Abs Immat Gran (auto) 0.1 10^3/uL (0-0.05) H 06/30/24 01:04
Absolute Neuts (auto) 12.3 10^3/uL (1.4-6.5) H 06/30/24 01:04
Absolute Lymphs (auto) 0.5 10^3/uL (1.2-3.4) L 06/30/24 01:04
Absolute Monos (auto) 0.7 10^3/uL (0.1-0.6) H 06/30/24 01:04
Absolute Basos (auto) 0.1 10^3/uL (0-0.2) 06/30/24 01:04
Immature Gran % 0.5 % (0-0.5) 06/30/24 01:04
Neutrophils % 90.4 % (42.2-75.2) H 06/30/24 01:04
Lymphocytes % 3.4 % (20.5-51.1) L 06/30/24 01:04
Monocytes % 5.1 % (1.7-9.3) 06/30/24 01:04
Eosinophils % 0.2 % (0-6) 06/30/24 01:04
Basophils % 0.4 % (0-2) 06/30/24 01:04
Procalcitonin 1.18 ng/ml (0.0-0.25) H 07/01/24 07:01
Ur Squamous Epith Cells 3-5 /LPF (Few) 06/30/24 01:59
Microbiology Results
Micro:
07/01/24 10:47 Blood Culture - Preliminary
Blood/Venous No Growth in 72 hours- Final report to follow
07/01/24 10:38 Blood Culture - Preliminary
Blood/Venous No Growth in 72 hours- Final report to follow
06/30/24 08:24 Respiratory Culture - Final
Sputum Usual Respiratory Grace
Gram Stain - Final
06/30/24 01:59 Urine Culture - Final
Urine Diptheroids
06/30/24 06:19 Legionella Urinary Antigen - Final
Urine Negative for Legionella pneumophila Serogroup 1 antigen.
A negative result does not rule out the possiblity of
Legionella infection due to other serogroups or species of
Legionella. Clinical correlation is recommended.
06/30/24 01:16 Influenza Types A & B (ROSELYN) - Final
Nasal Swab Negative for Influenza A & B, NAAT
Negative results must be combined with clinical observations
and patient history.
Nucleic Acid Amplification test (NAAT)performed on the
[employer] platform.
Assessment / Plan
Possible L4/L5 OM/discitis
Pacemaker
- recent exposure to ceftriaxone, azithromycin, cefazolin
- blood cultures x2 in progress no growth to date
- agree with holding antibiotics at the moment as patient is not septic
- for culture/pathology with IR tentatively tomorrow - ordered aerobic, anaerobic cultures and pathology
- follow clinically
Venous stasis dermatitis
- continue suppression with GENNY-wraps
- no need for antibiotics for this indication
[2024-07-04 19:00] VITALS: BP 102/57
[2024-07-04 23:00] VITALS: BP 141/91
[2024-07-05] VITALS (7 sets, daily range): BP systolic 105–143; BP diastolic 62–86; PULSE 76; O2SAT 97; BMI 42.4
[2024-07-05 07:09] LABS: Hematocrit 41.7 % (39.0-52.0); Hemoglobin 14.3 g/dL (13.0-18.0); Mean Corp Hgb Conc. 34.3 g/dL (33.0-37.0); Mean Corpuscular Hgb 32.3 pg (27.0-31.0); Mean Corpuscular Volume 94.1 fL (80.0-94.0); Mean Platelet Volume 9.9 fL (7.4-10.4); Platelet Count 218 10^3/uL (130-400); Red Blood Cell Count 4.43 10^6/uL (4.70-6.10); Red Cell Dist. Width 14.1 % (11.5-14.5); White Blood Cell Count 6.6 10^3/uL (4.8-10.8)
[2024-07-05 07:33] LABS: Blood Urea Nitrogen 24 mg/dl (9-20); Calcium 8.7 mg/dl (8.4-10.2); Carbon Dioxide 31 mmol/L (22-30); Chloride 99 mmol/L (98-107); Estimated Creatinine Clearance 111 ml/min; Glucose 94 mg/dl (70-99); Sodium 136 mmol/L (135-145); eGFR > 60.00
[2024-07-05] MEDS: TIKOSYN 500 MCG PO ×2 (07:52→19:39)
[2024-07-05] MEDS: ZYLOPRIM 300 MG PO (07:52)
[2024-07-05] MEDS: LIDOCAINE 4% PATCH 1 PATCH TOPICAL (07:52)
[2024-07-05] MEDS: COREG 6.25 MG PO ×2 (07:53→19:39)
[2024-07-05] MEDS: ENTRESTO 49 MG/51 MG 1 TAB PO ×2 (07:53→19:39)
[2024-07-05] MEDS: FLOMAX 0.4 MG PO (07:54)
[2024-07-05] MEDS: NON-FORMULARY ITEM 1 UNIT PO (07:54)
[2024-07-05] MEDS: DESENEX/MITRAZOL/ZEASORB 1 APPLIC TOPICAL ×2 (07:56→19:39)
[2024-07-05 08:01] LABS: Erythrocyte Sed Rate 38 mm/hour (0-20)
[2024-07-05] MEDS: ROXICODONE 5 MG PO (10:25)
--- NOTE | 2024-07-05 12:31 | W.PN.HOSP.TC ---
Today's Communication/Plan
-
await for IRAD input
hold abx
PT/OT-pain control
Assessment / Plan
Assessment / Plan
78-year-old man with weakness and fall he has morbid obesity and has difficulty walking. He has a productive cough for the past several months
# Possible L4/L5 osteomyelitis/discitis recent exposure to antibiotics. Blood cultures have been negative so far. Plan is to hold antibiotics. IR has been consulted for possible drainage. Xarelto Also on hold.
# Generalized weakness/fall
# Back pain likely secondary to above versus lumbar radiculopathy
Knee x-ray degenerative changes. No fracture
Chest x-ray without any pneumonia
X-ray of the spine without any acute changes
# Nonischemic myocardial injury likely in the setting of uncontrolled blood pressure
Cardiology evaluation appreciated and signed off. No further intervention required
Echo 06/30/2024-normal LV size and mild concentric remodeling. Asymmetric septal hypertrophy with normal LV systolic function. EF 50 to 55%. Stage II diastolic dysfunction. Normal RV size and function. Calcified possibly bicuspid aortic valve
with sclerosis without stenosis. IVC is moderately dilated and blunted with inspiratory collapse. Right atrial pressure 15 mmHg
# Chronic venous stasis changes of lower extremity. Patient states that he cannot take Lasix because he goes to the bathroom too many times. Francisco bandages . Lasix as needed.
# Pacemaker
# Paroxysmal atrial fibrillation-continue dofetilide, Coreg and Xarelto. History of cardioversion in the past
# Unclear if the patient has CHF-he is on Entresto-Cardiology eval noted.
# Enlarged prostate-continue Flomax and dutasteride
# Morbid obesity with a BMI of 43
# Likely has Sleep apnea- Says he needs a sleep study.
# Diverticulosis
# Nephrolithiasis
# Gout-continue allopurinol
# Ex-smoker
# DVT prophylaxis-SCDs for now
# Full code
Anticipated Discharge: > 48 hours
Subjective/Interval History
-
Date of Service: July 05, 2024
States of back pain
Objective Data
-
Labs:
Laboratory Results
07/05/24
06:32
WBC 6.6
Hgb 14.3
Hct 41.7
Plt Count 218
Sodium 136
Potassium 4.0
Chloride 99
Carbon Dioxide 31 H
BUN 24 H
Creatinine 0.7
Glucose 94
Calcium 8.7
Vital Signs:
Vital Signs
Temp Pulse Resp BP Pulse Ox
97.9 F 76 18 133/81 96
07/05/24 11:00 07/05/24 11:00 07/05/24 11:00 07/05/24 11:00 07/05/24 11:00
I&O
07/04/24 07/05/24 07/06/24
06:59 06:59 06:59
Intake Total 780 / 780
Output Total 300 / 300 2200 / 2200
Balance 480 / 480 -2200 / -2200
Physical Exam
-
General: Well Developed and No Apparent Distress
HEENT: Normocephalic, Atraumatic and Moist Mucous Membranes
Respiratory: Clear to Auscultation
Cardiac: Regular Rhythm and S1/S2; Negative Murmur, Rub or Gallop
GI: Soft, Nontender, Nondistended and Normal Bowel Sounds; Negative Organomegaly
Rectal: Deferred by Provider
Musculoskeletal: No Clubbing, No Cyanosis and Other (Bilateral lower extremity edema left more than right. Chronic venous changes of lower extremities, redness and warmth in left lower extremity. Right medial skin break)
Skin: Negative Rash
Neuro: Awake, No Motor Deficits and Nonfocal/Grossly Intact
Psych: Calm
--- NOTE | 2024-07-05 14:21 | CM ---
Patient seen bedside.
Continue work up.
PT recommending skilled rehab, patient declined.
Plan: home with VN, CM will continue to follow.
[facility]
--- NOTE | 2024-07-05 17:33 | W.PN.ID1 ---
Date of Service
Date of Service: July 05, 2024
Today's Communication
- agree with holding antibiotics at the moment as patient is not septic
- for culture/pathology with IR when feasible - ordered aerobic, anaerobic cultures and pathology
Assessment / Plan
Possible L4/L5 OM/discitis
Pacemaker
- recent exposure to ceftriaxone, azithromycin, cefazolin
- blood cultures x2 in progress no growth to date
- agree with holding antibiotics at the moment as patient is not septic
- for culture/pathology with IR when feasible - ordered aerobic, anaerobic cultures and pathology
- follow clinically
Venous stasis dermatitis
- continue suppression with GENNY-wraps
- no need for antibiotics for this indication
Chief Complaint
-: Other (possible OM/discitis)
Subjective / Review of Systems
afebrile
bp stable
awaiting biopsy
called adult daughter rashmi at his request
Vital Signs / Physical Exam
Vital Signs
Vital Signs
Temp Pulse Resp BP Pulse Ox
97.8 F 85 18 118/71 96
07/05/24 14:56 07/05/24 14:56 07/05/24 14:56 07/05/24 14:56 07/05/24 14:56
Physical Exam
Constitutional: No Acute Distress
Cardiovascular: Regular Rate and S1/S2; Negative Murmur or Rub
Pulmonary: Clear and Symmetric; Negative Wheezes or Rales
Gastrointestinal: Soft, Non Tender, Non Distended and Normal Bowel Sounds
Skin: Warm and Dry; Negative Rash or Jaundice
Objective Data
Lab Data
Lab Results
07/05/24 06:32
07/05/24 06:32
ESR 38 mm/hour (0-20) H 07/05/24 06:32
Estimated Creat Clear 111 ml/min 07/05/24 06:32
Total Bilirubin 2.8 mg/dl (0.2-1.3) H 06/30/24 01:59
AST 29 U/L (17-59) 06/30/24 01:59
ALT 17 U/L (0-50) 06/30/24 01:59
Alkaline Phosphatase 58 U/L (38-126) 06/30/24 01:59
C-Reactive Protein 47.30 mg/L (0.0-10.00) H 07/05/24 06:32
Most recent labs reviewed.
Micro Results:
07/01/24 10:47 Blood Culture - Preliminary
Blood/Venous No Growth in 4 days- Final report to follow
07/01/24 10:38 Blood Culture - Preliminary
Blood/Venous No Growth in 4 days- Final report to follow
06/30/24 08:24 Respiratory Culture - Final
Sputum Usual Respiratory Grace
Gram Stain - Final
06/30/24 01:59 Urine Culture - Final
Urine Diptheroids
06/30/24 06:19 Legionella Urinary Antigen - Final
Urine Negative for Legionella pneumophila Serogroup 1 antigen.
A negative result does not rule out the possiblity of
Legionella infection due to other serogroups or species of
Legionella. Clinical correlation is recommended.
06/30/24 01:16 Influenza Types A & B (ROSELYN) - Final
Nasal Swab Negative for Influenza A & B, NAAT
Negative results must be combined with clinical observations
and patient history.
Nucleic Acid Amplification test (NAAT)performed on the
[employer] platform.
[2024-07-05 21:44] LABS: INR 1.06; PT 14.3 Sec (11.4-14.6)
[2024-07-06] VITALS (8 sets, daily range): BP systolic 77–144; BP diastolic 55–91; BMI 42.2
[2024-07-06 07:48] LABS: % Basophils 0.8 % (0-2); % Eosinophils 4.2 % (0-6); % Immature Granulocytes 0.9 % (0-0.5); % Lymphocytes 17.8 % (20.5-51.1); % Monocytes 12.9 % (1.7-9.3); % Neutrophils 63.4 % (42.2-75.2); Absolute Basophils 0.1 10^3/uL (0-0.2); Absolute Eosinophils 0.3 10^3/uL (0-0.7); Absolute Immature Granulocytes 0.1 10^3/uL (0-0.05); Absolute Lymphocytes 1.4 10^3/uL (1.2-3.4); Hematocrit 41.4 % (39.0-52.0); Hemoglobin 14.3 g/dL (13.0-18.0); Mean Corp Hgb Conc. 34.5 g/dL (33.0-37.0); Mean Corpuscular Hgb 32.9 pg (27.0-31.0); Mean Corpuscular Volume 95.4 fL (80.0-94.0); Mean Platelet Volume 10.2 fL (7.4-10.4); Nucleated Red Blood Cells % 0 % (-); Platelet Count 232 10^3/uL (130-400); Red Blood Cell Count 4.34 10^6/uL (4.70-6.10); Red Cell Dist. Width 14.1 % (11.5-14.5); White Blood Cell Count 7.9 10^3/uL (4.8-10.8)
[2024-07-06 08:19] LABS: Blood Urea Nitrogen 24 mg/dl (9-20); Calcium 8.7 mg/dl (8.4-10.2); Carbon Dioxide 31 mmol/L (22-30); Chloride 99 mmol/L (98-107); Estimated Creatinine Clearance > 125 ml/min; Glucose 92 mg/dl (70-99); Potassium 4.1 mmol/L (3.5-5.1); Sodium 136 mmol/L (135-145); eGFR > 60.00
[2024-07-06] MEDS: LIDOCAINE 4% PATCH 1 PATCH TOPICAL (10:01)
[2024-07-06] MEDS: TIKOSYN 500 MCG PO ×2 (10:02→20:50)
[2024-07-06] MEDS: FLOMAX 0.4 MG PO (10:02)
[2024-07-06] MEDS: ENTRESTO 49 MG/51 MG 1 TAB PO ×2 (10:02→20:50)
[2024-07-06] MEDS: COREG 6.25 MG PO ×2 (10:03→20:50)
[2024-07-06] MEDS: ZYLOPRIM 300 MG PO (10:03)
[2024-07-06] MEDS: DESENEX/MITRAZOL/ZEASORB 1 APPLIC TOPICAL ×2 (10:05→21:16)
[2024-07-06] MEDS: ROXICODONE 5 MG PO (10:06)
[2024-07-06] MEDS: TYLENOL 1000 MG PO (10:06)
--- NOTE | 2024-07-06 10:07 | W.PN.HOSP.TC ---
Today's Communication/Plan
-
Status post IRAD drainage
Await for cultures
Monitor off antibiotic
Remains afebrile
ID recs
Assessment / Plan
Assessment / Plan
78-year-old man with weakness and fall he has morbid obesity and has difficulty walking. He has a productive cough for the past several months
# Possible L4/L5 osteomyelitis/discitis recent exposure to antibiotics. Blood cultures have been negative so far. Plan is to hold antibiotics. Status post IR drainage. Follow-up on the culture data. Restart Xarelto pending clearance in 24 hours
or maybe more. Will d/w with [facility]. ESR and CRP mildly elevated. Pro-Lamont was elevated.
# Generalized weakness/fall
# Back pain likely secondary to above versus lumbar radiculopathy
Knee x-ray degenerative changes. No fracture
Chest x-ray without any pneumonia
X-ray of the spine without any acute changes
# Nonischemic myocardial injury likely in the setting of uncontrolled blood pressure
Cardiology evaluation appreciated and signed off. No further intervention required
Echo 06/30/2024-normal LV size and mild concentric remodeling. Asymmetric septal hypertrophy with normal LV systolic function. EF 50 to 55%. Stage II diastolic dysfunction. Normal RV size and function. Calcified possibly bicuspid aortic valve
with sclerosis without stenosis. IVC is moderately dilated and blunted with inspiratory collapse. Right atrial pressure 15 mmHg
# Chronic venous stasis changes of lower extremity. Patient states that he cannot take Lasix because he goes to the bathroom too many times. Francisco bandages . Lasix as needed.
# Pacemaker
# Paroxysmal atrial fibrillation-continue dofetilide, Coreg and Xarelto. History of cardioversion in the past
# Chronic HFpEF he is on Entresto-Cardiology eval noted.
# Enlarged prostate-continue Flomax and dutasteride
# Morbid obesity with a BMI of 43
# Likely has Sleep apnea- Says he needs a sleep study.
# Diverticulosis
# Nephrolithiasis
# Gout-continue allopurinol
# Ex-smoker
# DVT prophylaxis-SCDs for now
# Full code
Anticipated Discharge: > 48 hours
Subjective/Interval History
-
Date of Service: July 06, 2024
States of back pain
Patient just returned from [facility] procedure
Objective Data
-
Labs:
Laboratory Results
07/06/24
07:01
WBC 7.9
Hgb 14.3
Hct 41.4
Plt Count 232
Sodium 136
Potassium 4.1
Chloride 99
Carbon Dioxide 31 H
BUN 24 H
Creatinine 0.6 L
Glucose 92
Calcium 8.7
Vital Signs:
Vital Signs
Temp Pulse Resp BP Pulse Ox
98 F 77 17 120/68 98
07/06/24 09:16 07/06/24 09:16 07/06/24 09:16 07/06/24 09:16 07/06/24 09:16
I&O
07/05/24 07/06/24 07/07/24
06:59 06:59 06:59
Intake Total 440 / 440 50 / 50
Output Total 2200 / 2200 1250 / 1250
Balance -2200 / -2200 -810 / -810 50 / 50
Physical Exam
-
General: Well Developed, No Apparent Distress and Morbidly Obese
HEENT: Normocephalic, Atraumatic and Moist Mucous Membranes
Respiratory: Clear to Auscultation
Cardiac: Regular Rhythm and S1/S2; Negative Murmur, Rub or Gallop
GI: Soft, Nontender, Nondistended and Normal Bowel Sounds; Negative Organomegaly
Rectal: Deferred by Provider
Musculoskeletal: No Clubbing, No Cyanosis and Other (Bilateral lower extremity edema left more than right. Chronic venous changes of lower extremities, redness and warmth in left lower extremity. Right medial skin break)
Skin: Negative Rash
Neuro: Awake, No Motor Deficits and Nonfocal/Grossly Intact
Psych: Calm
[2024-07-06] MEDS: NON-FORMULARY ITEM 1 UNIT PO (10:08)
--- NOTE | 2024-07-06 10:54 | CM ---
Patient s/p IR L4-5 fluid aspiration this am.
Await CX.
PT recommending skilled rehab, patient declined.
Plan: home with VN, CM will continue to follow.
[facility]
--- NOTE | 2024-07-06 15:00 | W.PN.ID1 ---
Date of Service
Date of Service: July 06, 2024
Today's Communication
restart ceftriaxone
Assessment / Plan
Possible L4/L5 OM/discitis
Pacemaker
- recent exposure to ceftriaxone, azithromycin, cefazolin
- blood cultures x2 in progress no growth to date
- biopsy gram stain not done due to small sample size, aerobic and anaerobic sent, insufficient sample for pathology
- restart ceftriaxone
- follow clinically
Venous stasis dermatitis
- continue suppression with GENNY-wraps
- no need for antibiotics for this indication
Chief Complaint
-: Other (possible OM/discitis)
Subjective / Review of Systems
afebrile
bp stable
had biopsy
Vital Signs / Physical Exam
Vital Signs
Vital Signs
Temp Pulse Resp BP Pulse Ox
97.9 F 78 18 139/91 94
07/06/24 11:26 07/06/24 11:26 07/06/24 11:26 07/06/24 11:26 07/06/24 11:26
Physical Exam
Constitutional: No Acute Distress
Cardiovascular: Regular Rate and S1/S2; Negative Murmur or Rub
Pulmonary: Clear and Symmetric; Negative Wheezes or Rales
Gastrointestinal: Soft, Non Tender, Non Distended and Normal Bowel Sounds
Skin: Warm and Dry; Negative Rash or Jaundice
Objective Data
Lab Data
Lab Results
07/06/24 07:01
07/06/24 07:01
ESR 38 mm/hour (0-20) H 07/05/24 06:32
PT 14.3 Sec (11.4-14.6) 07/05/24 21:21
INR 1.06 07/05/24 21:21
Estimated Creat Clear > 125 ml/min 07/06/24 07:01
Total Bilirubin 2.8 mg/dl (0.2-1.3) H 06/30/24 01:59
AST 29 U/L (17-59) 06/30/24 01:59
ALT 17 U/L (0-50) 06/30/24 01:59
Alkaline Phosphatase 58 U/L (38-126) 06/30/24 01:59
C-Reactive Protein 47.30 mg/L (0.0-10.00) H 07/05/24 06:32
Most recent labs reviewed.
Micro Results:
07/06/24 09:05 Wound Culture - Pending
Tissue Gram Stain - Final
07/01/24 10:47 Blood Culture - Final
Blood/Venous No Growth - Final Report
07/01/24 10:38 Blood Culture - Final
Blood/Venous No Growth - Final Report
07/06/24 09:05 Anaerobic Culture - Pending
Tissue
06/30/24 08:24 Respiratory Culture - Final
Sputum Usual Respiratory Grace
Gram Stain - Final
06/30/24 01:59 Urine Culture - Final
Urine Diptheroids
06/30/24 06:19 Legionella Urinary Antigen - Final
Urine Negative for Legionella pneumophila Serogroup 1 antigen.
A negative result does not rule out the possiblity of
Legionella infection due to other serogroups or species of
Legionella. Clinical correlation is recommended.
06/30/24 01:16 Influenza Types A & B (ROSELYN) - Final
Nasal Swab Negative for Influenza A & B, NAAT
Negative results must be combined with clinical observations
and patient history.
Nucleic Acid Amplification test (NAAT)performed on the
[employer] platform.
[2024-07-06] MEDS: IMODIUM 2 MG PO (15:53)
[2024-07-06] MEDS: STERILE WATER FOR INJECTION 20 ML IV (16:01)
[2024-07-06] MEDS: ROCEPHIN 2000 MG IV (16:01)
[2024-07-07] VITALS (7 sets, daily range): BP systolic 108–136; BP diastolic 6–78; PULSE 72; O2SAT 94; BMI 42.2
[2024-07-07 06:58] LABS: % Basophils 0.7 % (0-2); % Eosinophils 4.4 % (0-6); % Immature Granulocytes 1.4 % (0-0.5); % Lymphocytes 21.6 % (20.5-51.1); % Monocytes 12.1 % (1.7-9.3); % Neutrophils 59.8 % (42.2-75.2); Absolute Basophils 0.1 10^3/uL (0-0.2); Absolute Eosinophils 0.3 10^3/uL (0-0.7); Absolute Immature Granulocytes 0.1 10^3/uL (0-0.05); Absolute Lymphocytes 1.6 10^3/uL (1.2-3.4); Absolute Monocytes 0.9 10^3/uL (0.1-0.6); Absolute Neutrophils 4.4 10^3/uL (1.4-6.5); Hematocrit 40.6 % (39.0-52.0); Hemoglobin 13.8 g/dL (13.0-18.0); Mean Corpuscular Hgb 32.5 pg (27.0-31.0); Mean Corpuscular Volume 95.8 fL (80.0-94.0); Mean Platelet Volume 9.5 fL (7.4-10.4); Nucleated Red Blood Cells % 0 % (-); Platelet Count 221 10^3/uL (130-400); Red Blood Cell Count 4.24 10^6/uL (4.70-6.10); Red Cell Dist. Width 14.2 % (11.5-14.5); White Blood Cell Count 7.3 10^3/uL (4.8-10.8)
[2024-07-07 07:43] LABS: Blood Urea Nitrogen 30 mg/dl (9-20); Calcium 8.7 mg/dl (8.4-10.2); Carbon Dioxide 31 mmol/L (22-30); Chloride 102 mmol/L (98-107); Estimated Creatinine Clearance 111 ml/min; Glucose 87 mg/dl (70-99); Potassium 4.3 mmol/L (3.5-5.1); Sodium 137 mmol/L (135-145); eGFR > 60.00
[2024-07-07] MEDS: NON-FORMULARY ITEM 1 UNIT PO (09:20)
[2024-07-07] MEDS: LIDOCAINE 4% PATCH 1 PATCH TOPICAL (09:21)
[2024-07-07] MEDS: ENTRESTO 49 MG/51 MG 1 TAB PO ×2 (09:21→21:01)
[2024-07-07] MEDS: ZYLOPRIM 300 MG PO (09:22)
[2024-07-07] MEDS: COREG 6.25 MG PO ×2 (09:22→21:01)
[2024-07-07] MEDS: VISBIOME 2 CAP PO (09:22)
[2024-07-07] MEDS: DESENEX/MITRAZOL/ZEASORB 1 APPLIC TOPICAL ×2 (09:22→21:02)
[2024-07-07] MEDS: FLOMAX 0.4 MG PO (09:22)
[2024-07-07] MEDS: TIKOSYN 500 MCG PO ×2 (09:22→21:01)
--- NOTE | 2024-07-07 10:29 | W.PN.HOSP.TC ---
Addendum entered and electronically signed by Frandy Mays MD 07/07/24 10:51:
d/w with IRAD okay to restart xarelto
Original Note:
Today's Communication/Plan
-
restart xarelto pending irad
IV abx
PT/OT-OOB
Appreciate ID recs
Assessment / Plan
Assessment / Plan
78-year-old man with weakness and fall he has morbid obesity and has difficulty walking. He has a productive cough for the past several months
#sepsis likely 2/2 Possible L4/L5 osteomyelitis/discitis -poa recent exposure to antibiotics. Blood cultures have been negative so far. Status post IR drainage. not much fluid was able to be drained. Follow-up on the culture data. Not enough
fluids for all studies. ESR and CRP mildly elevated. Pro-Lamont was elevated. Started on rocephin per ID. Difficult situation. Remains afebrile. WBC wnl.
# Generalized weakness/fall
# Back pain likely secondary to above versus lumbar radiculopathy
Knee x-ray degenerative changes. No fracture
Chest x-ray without any pneumonia
X-ray of the spine without any acute changes
# Nonischemic myocardial injury likely in the setting of uncontrolled blood pressure
Cardiology evaluation appreciated and signed off. No further intervention required
Echo 06/30/2024-normal LV size and mild concentric remodeling. Asymmetric septal hypertrophy with normal LV systolic function. EF 50 to 55%. Stage II diastolic dysfunction. Normal RV size and function. Calcified possibly bicuspid aortic valve
with sclerosis without stenosis. IVC is moderately dilated and blunted with inspiratory collapse. Right atrial pressure 15 mmHg
BP improved 130/65
# Chronic venous stasis changes of lower extremity. Patient states that he cannot take Lasix because he goes to the bathroom too many times. Francisco bandages . Lasix as needed.
# Pacemaker
# Paroxysmal atrial fibrillation s/p PPM, -continue dofetilide, Coreg and Xarelto. History of cardioversion in the past
# Chronic HFpEF he is on Entresto-Cardiology eval noted.
# Enlarged prostate-continue Flomax and dutasteride
# Morbid obesity with a BMI of 43
# Likely has Sleep apnea- Says he needs a sleep study.
# Diverticulosis
# Nephrolithiasis
# Gout-continue allopurinol
# Ex-smoker
# DVT prophylaxis-SCDs for now
# Full code
Anticipated Discharge: > 48 hours
Subjective/Interval History
-
Date of Service: July 07, 2024
states of improvement in back pain
Objective Data
-
Labs:
Laboratory Results
07/07/24 07/07/24
06:49 06:50
WBC 7.3
Hgb 13.8
Hct 40.6
Plt Count 221
Sodium 137
Potassium 4.3
Chloride 102
Carbon Dioxide 31 H
BUN 30 H
Creatinine 0.7
Glucose 87
Calcium 8.7
Vital Signs:
Vital Signs
Temp Pulse Resp BP Pulse Ox
98.3 F 82 18 130/65 97
07/07/24 07:00 07/07/24 09:21 07/07/24 07:00 07/07/24 09:21 07/07/24 07:00
I&O
07/06/24 07/07/24 07/08/24
06:59 06:59 06:59
Intake Total 440 / 440 470 / 470
Output Total 1250 / 1250 450 / 450
Balance -810 / -810
Physical Exam
-
General: Well Developed, No Apparent Distress and Morbidly Obese
HEENT: Normocephalic, Atraumatic and Moist Mucous Membranes
Respiratory: Clear to Auscultation
Cardiac: Regular Rhythm and S1/S2; Negative Murmur, Rub or Gallop
GI: Soft, Nontender, Nondistended and Normal Bowel Sounds; Negative Organomegaly
Rectal: Deferred by Provider
Musculoskeletal: No Clubbing, No Cyanosis and Other (Bilateral lower extremity edema left more than right. Chronic venous changes of lower extremities, redness and warmth in left lower extremity. Right medial skin break)
Skin: Negative Rash
Neuro: Awake, No Motor Deficits and Nonfocal/Grossly Intact
Psych: Calm
[2024-07-07] MEDS: TYLENOL 1000 MG PO (11:29)
--- NOTE | 2024-07-07 13:59 | CM ---
Chart reviewed. Pt cont IV abx. Per chart, pt declined rehab as per recommended by therapy.
Plan: home with VN, CM will continue to follow.
[place] ANDERS
--- NOTE | 2024-07-07 15:09 | W.PN.ID1 ---
Date of Service
Date of Service: July 07, 2024
Today's Communication
- c/w ceftriaxone
- follow clinically, likely disposition wednesday
Assessment / Plan
Possible L4/L5 OM/discitis
Pacemaker
- recent exposure to ceftriaxone, azithromycin, cefazolin
- blood cultures x2 in progress no growth to date
- tissue culture no gram stain as limited sample, no growth to date, lab will hold to two weeks
- c/w ceftriaxone
- follow clinically, likely disposition wednesday
Venous stasis dermatitis
- continue suppression with GENNY-wraps
- no need for antibiotics for this indication
Chief Complaint
-: Other (possible OM/discitis)
Subjective / Review of Systems
afebrile
bp stable
Vital Signs / Physical Exam
Vital Signs
Vital Signs
Temp Pulse Resp BP Pulse Ox
99.0 F 77 22 121/71 96
07/07/24 13:15 07/07/24 13:15 07/07/24 13:15 07/07/24 13:15 07/07/24 13:15
Physical Exam
Constitutional: No Acute Distress
Cardiovascular: Regular Rate and S1/S2; Negative Murmur or Rub
Pulmonary: Clear and Symmetric; Negative Wheezes or Rales
Gastrointestinal: Soft, Non Tender, Non Distended and Normal Bowel Sounds
Skin: Warm and Dry; Negative Rash or Jaundice
Objective Data
Lab Data
Lab Results
07/07/24 06:50
07/07/24 06:49
ESR 38 mm/hour (0-20) H 07/05/24 06:32
PT 14.3 Sec (11.4-14.6) 07/05/24 21:21
INR 1.06 07/05/24 21:21
Estimated Creat Clear 111 ml/min 07/07/24 06:49
Total Bilirubin 2.8 mg/dl (0.2-1.3) H 06/30/24 01:59
AST 29 U/L (17-59) 06/30/24 01:59
ALT 17 U/L (0-50) 06/30/24 01:59
Alkaline Phosphatase 58 U/L (38-126) 06/30/24 01:59
C-Reactive Protein 47.30 mg/L (0.0-10.00) H 07/05/24 06:32
Most recent labs reviewed.
Micro Results:
07/06/24 09:05 Anaerobic Culture - Preliminary
Tissue Culture pending. Anaerobic cultures are examined after 3
days incubation. Additional information to follow.
07/06/24 09:05 Wound Culture - Preliminary
Tissue No growth
Gram Stain - Final
07/01/24 10:47 Blood Culture - Final
Blood/Venous No Growth - Final Report
07/01/24 10:38 Blood Culture - Final
Blood/Venous No Growth - Final Report
06/30/24 08:24 Respiratory Culture - Final
Sputum Usual Respiratory Grace
Gram Stain - Final
06/30/24 01:59 Urine Culture - Final
Urine Diptheroids
06/30/24 06:19 Legionella Urinary Antigen - Final
Urine Negative for Legionella pneumophila Serogroup 1 antigen.
A negative result does not rule out the possiblity of
Legionella infection due to other serogroups or species of
Legionella. Clinical correlation is recommended.
06/30/24 01:16 Influenza Types A & B (ROSELYN) - Final
Nasal Swab Negative for Influenza A & B, NAAT
Negative results must be combined with clinical observations
and patient history.
Nucleic Acid Amplification test (NAAT)performed on the
[employer] platform.
[2024-07-07] MEDS: ROCEPHIN 2000 MG IV (17:20)
[2024-07-07] MEDS: STERILE WATER FOR INJECTION 20 ML IV (17:20)
[2024-07-07] MEDS: XARELTO 20 MG PO (21:01)
[2024-07-08 03:53] VITALS: BP 122/71
[2024-07-08 06:00] VITALS: BMI 42.0
[2024-07-08 07:45] VITALS: BP 119/66
[2024-07-08 07:54] LABS: % Basophils 0.9 % (0-2); % Eosinophils 4.3 % (0-6); % Lymphocytes 20.3 % (20.5-51.1); % Monocytes 12.2 % (1.7-9.3); % Neutrophils 61.3 % (42.2-75.2); Absolute Basophils 0.1 10^3/uL (0-0.2); Absolute Eosinophils 0.3 10^3/uL (0-0.7); Absolute Immature Granulocytes 0.1 10^3/uL (0-0.05); Absolute Lymphocytes 1.4 10^3/uL (1.2-3.4); Absolute Monocytes 0.8 10^3/uL (0.1-0.6); Absolute Neutrophils 4.1 10^3/uL (1.4-6.5); Hematocrit 42.1 % (39.0-52.0); Hemoglobin 14.1 g/dL (13.0-18.0); Mean Corp Hgb Conc. 33.5 g/dL (33.0-37.0); Mean Corpuscular Hgb 32.6 pg (27.0-31.0); Mean Corpuscular Volume 97.2 fL (80.0-94.0); Mean Platelet Volume 9.8 fL (7.4-10.4); Nucleated Red Blood Cells % 0 % (-); Platelet Count 239 10^3/uL (130-400); Red Blood Cell Count 4.33 10^6/uL (4.70-6.10); White Blood Cell Count 6.7 10^3/uL (4.8-10.8)
[2024-07-08 08:12] LABS: Blood Urea Nitrogen 26 mg/dl (9-20); Calcium 8.8 mg/dl (8.4-10.2); Carbon Dioxide 33 mmol/L (22-30); Chloride 101 mmol/L (98-107); Estimated Creatinine Clearance 110 ml/min; Glucose 90 mg/dl (70-99); Potassium 4.4 mmol/L (3.5-5.1); Sodium 138 mmol/L (135-145); eGFR > 60.00
[2024-07-08] MEDS: ENTRESTO 49 MG/51 MG 1 TAB PO ×2 (08:52→21:19)
[2024-07-08] MEDS: VISBIOME 2 CAP PO (08:52)
[2024-07-08] MEDS: COREG 6.25 MG PO ×2 (08:52→21:18)
[2024-07-08] MEDS: FLOMAX 0.4 MG PO (08:52)
[2024-07-08] MEDS: TIKOSYN 500 MCG PO ×2 (08:52→21:19)
[2024-07-08] MEDS: ZYLOPRIM 300 MG PO (08:52)
[2024-07-08] MEDS: LIDOCAINE 4% PATCH 1 PATCH TOPICAL (08:53)
[2024-07-08] MEDS: NON-FORMULARY ITEM 1 UNIT PO (08:53)
[2024-07-08] MEDS: DESENEX/MITRAZOL/ZEASORB 1 APPLIC TOPICAL ×2 (08:54→21:19)
[2024-07-08] MEDS: TYLENOL 1000 MG PO (08:56)
[2024-07-08 11:00] VITALS: BP 111/65
[2024-07-08] MEDS: ROCEPHIN 2000 MG IV (15:20)
[2024-07-08] MEDS: STERILE WATER FOR INJECTION 20 ML IV (15:20)
[2024-07-08 15:50] VITALS: BP 121/68
--- NOTE | 2024-07-08 16:34 | W.PN.HOSP.TC ---
Today's Communication/Plan
-
All discussed with the patient in detail
Discussed with the nurse
Patient declining rate
Assessment / Plan
Assessment / Plan
Physical exam:
General: Awake, alert and oriented x3, not in distress and holds appropriate conversation.
HEENT: No active discharge, ecchymosis or bruising, moist lips, tongue and mucous membrane.
Eyes: No discharge or red conjunctiva, no nystagmus, pupils are reactive and equal
Neck:Supple, no JVD no bruit no goiter.
Respiratory: Normal AP contour and diameter, normal chest wall movement, normal respiratory effort, no respiratory distress,
Lungs: Good air entry bilaterally, no wheezing or rhonchi, no rales or crackles
Heart: S1, S2 regular, normal rate, no added sound.
Gastrointestinal: Positive bowel sounds, soft, nontender, no guarding or rigidity or organomegaly
Musculoskeletal: , no chest wall abnormality or tenderness. All joints and extremities have good range of motion, no muscle tenderness or any joint swelling or tenderness.
Extremities: Bilateral lower extremities pitting edema and stasis dermatitis have compression dressing on.,good range of motion
Skin: Warm and dry, stasis dermatitis of the lower extremities, no joint
Neurological: Awake, alert and oriented x3, normal mentation, speech clear and comprehensive, good muscle tone, move extremities
Psychiatric: Normal mood, normal thought and judgment, normal affect,
#sepsis likely 2/2 Possible L4/L5 osteomyelitis/discitis -poa recent exposure to antibiotics. Blood cultures have been negative so far. Status post IR drainage. not much fluid was able to be drained. Follow-up on the culture data. Not enough
fluids for all studies.
Blood cultures and cultures so far negative
Likely need long-term antibiotic
Plan to stay until Wednesday. ID ending culture sent for recommend
ESR and CRP mildly elevated. Pro-Lamont was elevated. Started on Rocephin per ID.
Remains afebrile. WBC wnl.
# Generalized weakness/fall
# Back pain likely secondary to above versus lumbar radiculopathy
Knee x-ray degenerative changes. No fracture
Chest x-ray without any pneumonia
X-ray of the spine without any acute changes
PT OT
# Nonischemic myocardial injury likely in the setting of uncontrolled blood pressure
Cardiology evaluation appreciated and signed off. No further intervention required
Echo 06/30/2024-normal LV size and mild concentric remodeling. Asymmetric septal hypertrophy with normal LV systolic function. EF 50 to 55%. Stage II diastolic dysfunction. Normal RV size and function. Calcified possibly bicuspid aortic valve
with sclerosis without stenosis. IVC is moderately dilated and blunted with inspiratory collapse. Right atrial pressure 15 mmHg
BP improved 130/65
# Chronic venous stasis changes of lower extremity. Patient states that he cannot take Lasix because he goes to the bathroom too many times. Francisco bandages . Lasix as needed.
# Pacemaker
# Paroxysmal atrial fibrillation s/p PPM, -continue dofetilide, Coreg and Xarelto. History of cardioversion in the past
# Chronic HFpEF he is on Entresto-Cardiology eval noted.
# Enlarged prostate-continue Flomax and dutasteride
# Morbid obesity with a BMI of 43
# Likely has Sleep apnea- Says he needs a sleep study.
# Diverticulosis
# Nephrolithiasis
# Gout-continue allopurinol
# Ex-smoker
# DVT prophylaxis-Xarelto
# Full code
Need cultures and plan for IV antibiotic, ID wants her to stay at least symptomatic
Anticipated Discharge: > 48 hours
Subjective/Interval History
-
Date of Service: July 08, 2024
Seen and examined, sitting on the chair, awake, alert oriented x 3, overall feels better and more energetic and feels his back and lower extremity pain better than before, afebrile, denying urinary or GI symptoms, eats and drinks well and moves his
bowel. He is exercising in the bed and he said he is able to get himself up and sit down few times in the chair holding to the chair and
Objective Data
-
Labs:
Laboratory Results
07/08/24
07:25
WBC 6.7
Hgb 14.1
Hct 42.1
Plt Count 239
Sodium 138
Potassium 4.4
Chloride 101
Carbon Dioxide 33 H
BUN 26 H
Creatinine 0.7
Glucose 90
Calcium 8.8
Vital Signs:
Vital Signs
Temp Pulse Resp BP Pulse Ox
98.7 F 78 14 111/65 97
07/08/24 11:00 07/08/24 11:00 07/08/24 11:00 07/08/24 11:00 07/08/24 11:00
I&O
07/07/24 07/08/24 07/09/24
07:59 07:59 07:59
Intake Total 470 / 470 360 / 360
Output Total 450 / 450 1400 / 1400
Balance 20 / 20 -1040 / -1040
Review of Systems
-
All other systems: Reviewed and negative
Data Reviewed
-
Medical Tests (Nuc Med, Echo etc): Report Reviewed by me
Labs: Labs Reviewed by me
[2024-07-08 20:00] VITALS: BMI 42.0
[2024-07-08] MEDS: XARELTO 20 MG PO (21:19)
[2024-07-08 23:54] VITALS: BP 98/60
[2024-07-09 03:37] VITALS: BP 110/65
[2024-07-09 05:03] VITALS: BMI 41.9
[2024-07-09 07:50] VITALS: BP 149/77
[2024-07-09] MEDS: ZYLOPRIM 300 MG PO (09:04)
[2024-07-09] MEDS: COREG 6.25 MG PO ×2 (09:04→21:34)
[2024-07-09] MEDS: LIDOCAINE 4% PATCH 1 PATCH TOPICAL (09:04)
[2024-07-09] MEDS: FLOMAX 0.4 MG PO (09:04)
[2024-07-09] MEDS: ENTRESTO 49 MG/51 MG 1 TAB PO ×2 (09:05→21:34)
[2024-07-09] MEDS: TIKOSYN 500 MCG PO ×2 (09:05→21:34)
[2024-07-09] MEDS: VISBIOME 2 CAP PO (09:06)
[2024-07-09] MEDS: DESENEX/MITRAZOL/ZEASORB 1 APPLIC TOPICAL ×2 (09:07→21:34)
[2024-07-09] MEDS: TYLENOL 1000 MG PO ×2 (09:08→21:34)
[2024-07-09 11:30] VITALS: BP 99/57
[2024-07-09] MEDS: NON-FORMULARY ITEM PO (11:37)
--- NOTE | 2024-07-09 14:26 | W.PN.HOSP.TC ---
Today's Communication/Plan
-
All discussed with the patient in detail and expressed understanding
Discussed with the nurse
Pending ID final recommendation regarding antibiotic duration and PICC or midline placed
Assessment / Plan
Assessment / Plan
Physical exam:
General: Awake, alert and oriented x3, not in distress and holds appropriate conversation.
HEENT: No active discharge, ecchymosis or bruising, moist lips, tongue and mucous membrane.
Eyes: No discharge or red conjunctiva, no nystagmus, pupils are reactive and equal
Neck:Supple, no JVD no bruit no goiter.
Respiratory: Normal AP contour and diameter, normal chest wall movement, normal respiratory effort, no respiratory distress,
Lungs: Good air entry bilaterally, no wheezing or rhonchi, no rales or crackles
Heart: S1, S2 regular, normal rate, no added sound.
Gastrointestinal: Positive bowel sounds, soft, nontender, no guarding or rigidity or organomegaly
Musculoskeletal: , no chest wall abnormality or tenderness. All joints and extremities have good range of motion, no muscle tenderness or any joint swelling or tenderness.
Extremities: Bilateral lower extremities pitting edema and stasis dermatitis have compression dressing on.,good range of motion
Skin: Warm and dry, stasis dermatitis of the lower extremities, no joint
#sepsis likely 2/2 Possible L4/L5 osteomyelitis/discitis -poa recent exposure to antibiotics. Blood cultures have been negative so far. Status post IR drainage. not much fluid was able to be drained. Follow-up on the culture data. Not enough
fluids for all studies.
Blood cultures and cultures so far negative
Likely need long-term antibiotic per ID for the duration also the need for PICC line, will defer to ID if they follow
Continue Rocephin 2 g daily
ESR and CRP mildly elevated. Pro-Lamont was elevated. Started on Rocephin per ID.
Remains afebrile. WBC wnl.
Diarrhea: Patient had 1 episodes of the nonbloody loose stool. History of colitis admit he got used to these kind of diarrhea sometimes take some Imodium. Advised about since has been in the hospital and on antibiotic hold of Imodium if the
diarrhea persist we need to come out infectious causes including C. difficile, breast understanding
# Generalized weakness/fall
# Back pain likely secondary to above versus lumbar radiculopathy
Knee x-ray degenerative changes. No fracture
Chest x-ray without any pneumonia
X-ray of the spine without any acute changes
PT OT
# Nonischemic myocardial injury likely in the setting of uncontrolled blood pressure
Cardiology evaluation appreciated and signed off. No further intervention required
Echo 06/30/2024-normal LV size and mild concentric remodeling. Asymmetric septal hypertrophy with normal LV systolic function. EF 50 to 55%. Stage II diastolic dysfunction. Normal RV size and function. Calcified possibly bicuspid aortic valve
with sclerosis without stenosis. IVC is moderately dilated and blunted with inspiratory collapse. Right atrial pressure 15 mmHg
BP improved 130/65
# Chronic venous stasis changes of lower extremity. Patient states that he cannot take Lasix because he goes to the bathroom too many times. Francisco bandages . Lasix as needed.
# Pacemaker
# Paroxysmal atrial fibrillation s/p PPM, -continue dofetilide, Coreg and Xarelto. History of cardioversion in the past
# Chronic HFpEF he is on Entresto-Cardiology eval noted.
# Enlarged prostate-continue Flomax and dutasteride
# Morbid obesity with a BMI of 43
# Likely has Sleep apnea- Says he needs a sleep study.
# Diverticulosis
# Nephrolithiasis
# Gout-continue allopurinol
# Ex-smoker
# DVT prophylaxis-Xarelto
# Full code
Need cultures and plan for IV antibiotic, ID wants her to stay at least symptomatic
Anticipated Discharge: 24 - 48 hours
Subjective/Interval History
-
Date of Service: July 09, 2024
Seen and examined, awake and alert, overall feels better, had 1 episode with a loose stool earlier today with no abdominal pain no fever or chills or any blood content.
Feels his back pain gradually improving, no weakness or numbness in extremity no fever or chill,
Objective Data
-
Vital Signs:
Vital Signs
Temp Pulse Resp BP Pulse Ox
97.4 F 77 16 99/57 95
07/09/24 11:30 07/09/24 11:30 07/09/24 11:30 07/09/24 11:30 07/09/24 11:30
I&O
07/08/24 07/09/24 07/10/24
07:59 07:59 07:59
Intake Total 360 / 360 480 / 480
Output Total 1400 / 1400 1500 / 1500
Balance -1040 / -1040 -1020 / -1020
Data Reviewed
-
Labs: Labs Reviewed by me
Old Records: Reviewed
[2024-07-09] MEDS: STERILE WATER FOR INJECTION 20 ML IV (15:25)
[2024-07-09] MEDS: ROCEPHIN 2000 MG IV (15:26)
[2024-07-09 15:50] VITALS: BP 111/68
[2024-07-09 19:45] VITALS: BP 105/70
[2024-07-09] MEDS: XARELTO 20 MG PO (21:34)
[2024-07-09 23:34] VITALS: BP 114/76
[2024-07-10 03:43] VITALS: BP 101/69
[2024-07-10 07:01] VITALS: BP 118/76
[2024-07-10] MEDS: NON-FORMULARY ITEM 1 UNIT PO (09:59)
[2024-07-10 10:00] VITALS: BMI 41.9
[2024-07-10] MEDS: FLOMAX 0.4 MG PO (10:00)
[2024-07-10] MEDS: TIKOSYN 500 MCG PO ×2 (10:00→21:02)
[2024-07-10] MEDS: VISBIOME 2 CAP PO (10:00)
[2024-07-10] MEDS: ZYLOPRIM 300 MG PO (10:00)
[2024-07-10] MEDS: ENTRESTO 49 MG/51 MG 1 TAB PO ×2 (10:00→21:01)
[2024-07-10] MEDS: COREG 6.25 MG PO ×2 (10:00→21:02)
[2024-07-10] MEDS: LIDOCAINE 4% PATCH 1 PATCH TOPICAL (10:00)
[2024-07-10] MEDS: DESENEX/MITRAZOL/ZEASORB 1 APPLIC TOPICAL ×2 (10:01→21:18)
[2024-07-10 11:09] VITALS: BP 102/61
--- NOTE | 2024-07-10 11:18 | CM ---
Chart reviewed for d/c planning. Care ongoing at this time.
Pt cont w/ IV abx. Per chart, may need abx penitentiary, awaiting final ID recommendation on abx duration.
Pt prev declined rehab as per recommended, [facility] accepted.
Plan: Home w/ [facility]; will watch for IV abx needs at d/c
[2024-07-10 15:01] VITALS: BP 113/63
--- NOTE | 2024-07-10 15:45 | W.PN.ID1 ---
Date of Service
Date of Service: July 10, 2024
Today's Communication
Continue antibiotics.
Assessment / Plan
Possible L4/L5 OM/discitis
Pacemaker
- recent exposure to ceftriaxone, azithromycin, cefazolin
- blood cultures x2 in progress no growth to date
- tissue culture no gram stain as limited sample, no growth to date, lab will hold to two weeks
- c/w ceftriaxone (d#5)
- follow clinically, likely disposition wednesday
Venous stasis dermatitis
- continue compression with GENNY-wraps
Chief Complaint
-: Other (possible OM/discitis)
Subjective / Review of Systems
Review of Systems: No Fever and No Chills
Vital Signs / Physical Exam
Vital Signs
Vital Signs
Temp Pulse Resp BP Pulse Ox
98.3 F 81 18 102/61 96
07/10/24 11:09 07/10/24 11:09 07/10/24 11:09 07/10/24 11:09 07/10/24 11:09
Physical Exam
Constitutional: No Acute Distress
Cardiovascular: Regular Rate and S1/S2; Negative Murmur or Rub
Pulmonary: Clear and Symmetric; Negative Wheezes or Rales
Gastrointestinal: Soft, Non Tender, Non Distended and Normal Bowel Sounds
Skin: Warm and Dry; Negative Rash or Jaundice
Objective Data
Lab Data
Lab Results
07/08/24 07:25
07/08/24 07:25
ESR 38 mm/hour (0-20) H 07/05/24 06:32
PT 14.3 Sec (11.4-14.6) 07/05/24 21:21
INR 1.06 07/05/24 21:21
Estimated Creat Clear 110 ml/min 07/08/24 07:25
Total Bilirubin 2.8 mg/dl (0.2-1.3) H 06/30/24 01:59
AST 29 U/L (17-59) 06/30/24 01:59
ALT 17 U/L (0-50) 06/30/24 01:59
Alkaline Phosphatase 58 U/L (38-126) 06/30/24 01:59
C-Reactive Protein 47.30 mg/L (0.0-10.00) H 07/05/24 06:32
Most recent labs reviewed.
Micro Results:
07/06/24 09:05 Wound Culture - Preliminary
Tissue No growth
Gram Stain - Final
07/06/24 09:05 Anaerobic Culture - Preliminary
Tissue Culture pending. Anaerobic cultures are examined after 3
days incubation. Additional information to follow.
07/01/24 10:47 Blood Culture - Final
Blood/Venous No Growth - Final Report
07/01/24 10:38 Blood Culture - Final
Blood/Venous No Growth - Final Report
06/30/24 08:24 Respiratory Culture - Final
Sputum Usual Respiratory Grace
Gram Stain - Final
06/30/24 01:59 Urine Culture - Final
Urine Diptheroids
06/30/24 06:19 Legionella Urinary Antigen - Final
Urine Negative for Legionella pneumophila Serogroup 1 antigen.
A negative result does not rule out the possiblity of
Legionella infection due to other serogroups or species of
Legionella. Clinical correlation is recommended.
06/30/24 01:16 Influenza Types A & B ([facility]) - Final
Nasal Swab Negative for Influenza A & B, NAAT
Negative results must be combined with clinical observations
and patient history.
Nucleic Acid Amplification test (NAAT)performed on the
[employer] platform.
--- NOTE | 2024-07-10 16:24 | W.PN.HOSP.TC ---
Today's Communication/Plan
-
Case management consulted for discharge planning.
Picc ordered for tomorrow
Assessment / Plan
Assessment / Plan
CVS: S1-S2 normal
Chest: CTA B/L
Abdomen: Soft, NT / Bowel sounds present
Extremities: edema better
#sepsis likely 2/2 Possible L4/L5 osteomyelitis/discitis -poa r
Recent exposure to antibiotics. Blood cultures have been negative so far. Status post IR drainage. not much fluid was able to be drained. Follow-up on the culture data. Not enough fluids for all studies.
Blood cultures and cultures so far negative
Likely need long-term antibiotic per ID for the duration also the need for PICC line, will defer to ID if they follow
Continue Rocephin 2 g daily
ESR and CRP mildly elevated. Pro-Lamont was elevated. Started on Rocephin per ID.
Remains afebrile. WBC wnl.
#Diarrhea: Patient had 1 episodes of the nonbloody loose stool.
History of colitis admit he got used to these kind of diarrhea sometimes takes Imodium.
Watch
# Generalized weakness/fall
# Back pain likely secondary to above versus lumbar radiculopathy
Knee x-ray degenerative changes. No fracture
Chest x-ray without any pneumonia
X-ray of the spine without any acute changes
PT OT
# Nonischemic myocardial injury likely in the setting of uncontrolled blood pressure
Cardiology evaluation appreciated and signed off. No further intervention required
Echo 06/30/2024-normal LV size and mild concentric remodeling. Asymmetric septal hypertrophy with normal LV systolic function. EF 50 to 55%. Stage II diastolic dysfunction. Normal RV size and function. Calcified possibly bicuspid aortic valve
with sclerosis without stenosis. IVC is moderately dilated and blunted with inspiratory collapse. Right atrial pressure 15 mmHg
BP improved 130/65
# Chronic venous stasis changes of lower extremity. Patient states that he cannot take Lasix because he goes to the bathroom too many times. Francisco bandages . Lasix as needed.
# Pacemaker
# Paroxysmal atrial fibrillation s/p PPM, -continue dofetilide, Coreg and Xarelto. History of cardioversion in the past
# Chronic HFpEF he is on Entresto-Cardiology eval noted.
# Enlarged prostate-continue Flomax and dutasteride
# Morbid obesity with a BMI of 43
# Likely has Sleep apnea- Says he needs a sleep study.
# Diverticulosis
# Nephrolithiasis
# Gout-continue allopurinol
# Ex-smoker
# DVT prophylaxis-Xarelto
# Full code
D/W ID
Pt wants to go home and not to rehab
Anticipated Discharge: Within 24 hours
Subjective/Interval History
-
Date of Service: July 10, 2024
Objective Data
-
Vital Signs:
Vital Signs
Temp Pulse Resp BP Pulse Ox
98.3 F 81 18 102/61 96
07/10/24 11:09 07/10/24 11:09 07/10/24 11:09 07/10/24 11:09 07/10/24 11:09
I&O
07/09/24 07/10/24 07/11/24
06:59 06:59 06:59
Intake Total 480 / 480 480 / 480
Output Total 1500 / 1500 700 / 700
Balance -1020 / -1020 -220 / -220
[2024-07-10] MEDS: ROCEPHIN 2000 MG IV (16:25)
[2024-07-10] MEDS: STERILE WATER FOR INJECTION 20 ML IV (16:25)
[2024-07-10 19:00] VITALS: BP 118/63
[2024-07-10] MEDS: XARELTO 20 MG PO (21:02)
[2024-07-10] MEDS: TYLENOL 1000 MG PO (21:19)
[2024-07-10 23:00] VITALS: BP 103/64
[2024-07-11] VITALS (8 sets, daily range): BP systolic 108–158; BP diastolic 63–93; PULSE 87; O2SAT 97; BMI 41.9
[2024-07-11] MEDS: TYLENOL 1000 MG PO ×2 (06:30→20:50)
[2024-07-11] MEDS: LIDOCAINE 4% PATCH 1 PATCH TOPICAL (08:56)
[2024-07-11] MEDS: VISBIOME 2 CAP PO (08:56)
[2024-07-11] MEDS: NON-FORMULARY ITEM 1 UNIT PO (08:56)
[2024-07-11] MEDS: FLOMAX 0.4 MG PO (08:57)
[2024-07-11] MEDS: ZYLOPRIM 300 MG PO (08:57)
[2024-07-11] MEDS: ENTRESTO 49 MG/51 MG 1 TAB PO ×2 (08:57→20:36)
[2024-07-11] MEDS: TIKOSYN 500 MCG PO ×2 (08:57→20:35)
[2024-07-11] MEDS: COREG 6.25 MG PO ×2 (08:57→20:36)
[2024-07-11] MEDS: DESENEX/MITRAZOL/ZEASORB 1 APPLIC TOPICAL ×2 (08:59→20:44)
[2024-07-11 09:16] LABS: Hematocrit 42.5 % (39.0-52.0); Hemoglobin 14.2 g/dL (13.0-18.0); Mean Corp Hgb Conc. 33.4 g/dL (33.0-37.0); Mean Corpuscular Hgb 32.1 pg (27.0-31.0); Mean Corpuscular Volume 95.9 fL (80.0-94.0); Mean Platelet Volume 9.7 fL (7.4-10.4); Platelet Count 266 10^3/uL (130-400); Red Blood Cell Count 4.43 10^6/uL (4.70-6.10); Red Cell Dist. Width 13.8 % (11.5-14.5); White Blood Cell Count 6.8 10^3/uL (4.8-10.8)
[2024-07-11 10:11] LABS: Blood Urea Nitrogen 22 mg/dl (9-20); Calcium 8.7 mg/dl (8.4-10.2); Carbon Dioxide 30 mmol/L (22-30); Chloride 102 mmol/L (98-107); Estimated Creatinine Clearance 110 ml/min; Glucose 95 mg/dl (70-99); Potassium 4.5 mmol/L (3.5-5.1); Sodium 137 mmol/L (135-145); eGFR > 60.00
--- NOTE | 2024-07-11 12:21 | W.PN.ID1 ---
Date of Service
Date of Service: July 11, 2024
Today's Communication
- c/w ceftriaxone plan a tentative 6 week course
- will reassess at around 4 weeks, if no improvement could consider switch to alterantive regimen
- weekly cbc, cmp, esr, crp to be sent to my office
- PICC is ordered
- stable for dc when home IV antibiotics are arranged, could also be done at [facility] with once daily dosing
Assessment / Plan
Possible L4/L5 OM/discitis
Pacemaker
- recent exposure to ceftriaxone, azithromycin, cefazolin
- blood cultures x2 in progress no growth to date
- tissue culture no growth to date, lab will hold to two weeks
- c/w ceftriaxone plan a tentative 6 week course
- will reassess at around 4 weeks, if no improvement could consider switch to alterantive regimen
- weekly cbc, cmp, esr, crp to be sent to my office
- PICC is ordered
- stable for dc when home IV antibiotics are arranged, could also be done at [facility] with once daily dosing
Chief Complaint
-: Other (possible OM/discitis)
Subjective / Review of Systems
afebrile
bp stable
tolerating current therapies
no events overnight
Vital Signs / Physical Exam
Vital Signs
Vital Signs
Temp Pulse Resp BP Pulse Ox
97.8 F 75 20 131/88 97
07/11/24 07:55 07/11/24 07:55 07/11/24 07:55 07/11/24 07:55 07/11/24 08:30
Physical Exam
Constitutional: No Acute Distress
Cardiovascular: Regular Rate and S1/S2; Negative Murmur or Rub
Pulmonary: Clear and Symmetric; Negative Wheezes or Rales
Gastrointestinal: Soft, Non Tender, Non Distended and Normal Bowel Sounds
Skin: Warm and Dry; Negative Rash or Jaundice
Objective Data
Lab Data
Lab Results
07/11/24 08:48
07/11/24 08:48
ESR 38 mm/hour (0-20) H 07/05/24 06:32
PT 14.3 Sec (11.4-14.6) 07/05/24 21:21
INR 1.06 07/05/24 21:21
Estimated Creat Clear 110 ml/min 07/11/24 08:48
Total Bilirubin 2.8 mg/dl (0.2-1.3) H 06/30/24 01:59
AST 29 U/L (17-59) 06/30/24 01:59
ALT 17 U/L (0-50) 06/30/24 01:59
Alkaline Phosphatase 58 U/L (38-126) 06/30/24 01:59
C-Reactive Protein 47.30 mg/L (0.0-10.00) H 07/05/24 06:32
Most recent labs reviewed.
Micro Results:
07/06/24 09:05 Wound Culture - Preliminary
Tissue No growth
Gram Stain - Final
07/06/24 09:05 Anaerobic Culture - Preliminary
Tissue Culture pending. Anaerobic cultures are examined after 3
days incubation. Additional information to follow.
07/01/24 10:47 Blood Culture - Final
Blood/Venous No Growth - Final Report
07/01/24 10:38 Blood Culture - Final
Blood/Venous No Growth - Final Report
06/30/24 08:24 Respiratory Culture - Final
Sputum Usual Respiratory Grace
Gram Stain - Final
06/30/24 01:59 Urine Culture - Final
Urine Diptheroids
06/30/24 06:19 Legionella Urinary Antigen - Final
Urine Negative for Legionella pneumophila Serogroup 1 antigen.
A negative result does not rule out the possiblity of
Legionella infection due to other serogroups or species of
Legionella. Clinical correlation is recommended.
06/30/24 01:16 Influenza Types A & B ([facility]) - Final
Nasal Swab Negative for Influenza A & B, NAAT
Negative results must be combined with clinical observations
and patient history.
Nucleic Acid Amplification test (NAAT)performed on the
[employer] platform.
--- NOTE | 2024-07-11 13:47 | CM ---
Chart reviewed for d/c planning. Pt is needing to cont IV abx at d/c
Script provided from Dr. Titus
Met w/ pt bedside to discuss abx need. Pt agreeable to [facility] company as supplier and will await for CM to confirm out of pocket cost for medication. Pt's daughter, Airam, was on the phone w/ pt as CM was discussing plan. Airam is a
licensed psychiatric technician that works for [employer]. Airam shared she would prefer [facility] to administer medication. Airam also stated she would like for pt to get home PT as well. CM confirmed that [facility] already accepted pt for home PT at d/c.
CM spoke w/ Sandi/[employer] [facility], informed Sandi that pt's daughter prefers [facility] for [facility] as Sandi mentioned a HH agency would be needed.
CM faxed script and corresponding documents to [phone]. Will await call from Sandi on kim
[facility]

[facility]

Plan: Home w/ IV abx supplied through [facility].
[facility] for [facility] and PT
--- NOTE | 2024-07-11 15:20 | W.PN.HOSP.TC ---
Today's Communication/Plan
-
Picc line placed
Discharge planning.
he can be discharged when infusion set up.
Possible discharge tomorrow.
Assessment / Plan
Assessment / Plan
CVS: S1-S2 normal
Chest: CTA B/L
Abdomen: Soft, NT / Bowel sounds present
Extremities: edema better
#sepsis likely 2/2 Possible L4/L5 osteomyelitis/discitis -poa r
Recent exposure to antibiotics. Blood cultures have been negative so far. Status post IR drainage. not much fluid was able to be drained. Follow-up on the culture data. Not enough fluids for all studies.
Blood cultures and cultures so far negative
Likely need long-term antibiotic per ID for the duration also the need for PICC line, will defer to ID if they follow
Continue Rocephin 2 g daily
ESR and CRP mildly elevated. Pro-Lamont was elevated. Started on Rocephin per ID.
Remains afebrile. WBC wnl.
#Diarrhea: Patient had 1 episodes of the nonbloody loose stool.
History of colitis admit he got used to these kind of diarrhea sometimes takes Imodium.
Watch
# Generalized weakness/fall
# Back pain likely secondary to above versus lumbar radiculopathy
Knee x-ray degenerative changes. No fracture
Chest x-ray without any pneumonia
X-ray of the spine without any acute changes
PT OT
# Nonischemic myocardial injury likely in the setting of uncontrolled blood pressure
Cardiology evaluation appreciated and signed off. No further intervention required
Echo 06/30/2024-normal LV size and mild concentric remodeling. Asymmetric septal hypertrophy with normal LV systolic function. EF 50 to 55%. Stage II diastolic dysfunction. Normal RV size and function. Calcified possibly bicuspid aortic valve
with sclerosis without stenosis. IVC is moderately dilated and blunted with inspiratory collapse. Right atrial pressure 15 mmHg
# Chronic venous stasis changes of lower extremity. Patient states that he cannot take Lasix because he goes to the bathroom too many times. Francisco bandages . Lasix as needed.Will give Lasix for home. He can atleast take PRN ( He wont take daily)
# Pacemaker
# Paroxysmal atrial fibrillation s/p PPM, -continue dofetilide, Coreg and Xarelto. History of cardioversion in the past
# Chronic HFpEF he is on Entresto-Cardiology eval noted.
# Enlarged prostate-continue Flomax and dutasteride
# Morbid obesity with a BMI of 43
# Likely has Sleep apnea- Says he needs a sleep study.
# Diverticulosis
# Nephrolithiasis
# Gout-continue allopurinol
# Ex-smoker
# DVT prophylaxis-Xarelto
# Full code
D/W RN
D/W Cse management
D/W daughter updated
Pt wants to go home and not to rehab
Anticipated Discharge: Within 24 hours
Subjective/Interval History
-
Date of Service: July 11, 2024
Objective Data
-
Labs:
Laboratory Results
07/11/24
08:48
WBC 6.8
Hgb 14.2
Hct 42.5
Plt Count 266
Sodium 137
Potassium 4.5
Chloride 102
Carbon Dioxide 30
BUN 22 H
Creatinine 0.7
Glucose 95
Calcium 8.7
Vital Signs:
Vital Signs
Temp Pulse Resp BP Pulse Ox
98.3 F 75 16 134/73 96
07/11/24 12:30 07/11/24 12:30 07/11/24 12:30 07/11/24 12:30 07/11/24 12:30
I&O
07/10/24 07/11/24 07/12/24
06:59 06:59 06:59
Intake Total 480 / 480 720 / 720
Output Total 700 / 700 850 / 850
Balance -220 / -220 -130 / -130
[2024-07-11] MEDS: STERILE WATER FOR INJECTION 20 ML IV (16:39)
[2024-07-11] MEDS: LASIX 20 MG IV (16:39)
[2024-07-11] MEDS: ROCEPHIN 2000 MG IV (16:39)
[2024-07-11] MEDS: XARELTO 20 MG PO (20:43)
[2024-07-12 03:57] VITALS: BP 120/70
[2024-07-12 06:00] VITALS: BMI 41.3
[2024-07-12 07:40] VITALS: BP 119/73
[2024-07-12] MEDS: ENTRESTO 49 MG/51 MG 1 TAB PO (08:48)
[2024-07-12] MEDS: ZYLOPRIM 300 MG PO (08:48)
[2024-07-12] MEDS: FLOMAX 0.4 MG PO (08:48)
[2024-07-12] MEDS: TIKOSYN 500 MCG PO (08:48)
[2024-07-12] MEDS: VISBIOME 2 CAP PO (08:49)
[2024-07-12] MEDS: LIDOCAINE 4% PATCH 1 PATCH TOPICAL (08:49)
[2024-07-12] MEDS: COREG 6.25 MG PO (08:49)
[2024-07-12] MEDS: NON-FORMULARY ITEM 1 UNIT PO (08:50)
[2024-07-12] MEDS: DESENEX/MITRAZOL/ZEASORB 1 APPLIC TOPICAL (08:50)
[2024-07-12] MEDS: TYLENOL 1000 MG PO (08:55)
--- NOTE | 2024-07-12 10:55 | CM ---
CM spoke w/ Sandi/[facility] confirming out of pocket cost of $148/week for medication and supplies. Sandi stated [facility] is contracted w/ [facility] and the nurse to administer abx will be through [facility].
CM updated pt bedside about cost, pt is agreeable to move forward. CM updated Sandi who shared she can complete bedside teaching at 12:30 pm and pt can d/c home after his 4 pm dose today.
CM updated pt's daughter, Ann (Airam), about d/c plan and [facility]. Airam was agreeable to plan but stated she is unable to be present during the teaching because she works and if additional teaching can occur in the home tomorrow when the nurse
comes. Airam shared she will transport pt home around 5:30/6 pm
ROSHNI updated Adrianne/[facility] advising of pt's d/c today to coordinate home PT/OT
Updated hospitalist and nurse
IMM reviewed, pt given copy, copy on chart
Plan: Home w/ IV abx provided through [facility] for home PT/OT
[2024-07-12 11:49] VITALS: BP 105/68
--- NOTE | 2024-07-12 12:01 | W.PN.ID1 ---
Date of Service
Date of Service: July 12, 2024
Today's Communication
- stable for dc when home IV antibiotics are arranged
Assessment / Plan
Possible L4/L5 OM/discitis
Pacemaker
- recent exposure to ceftriaxone, azithromycin, cefazolin
- blood cultures x2 in progress no growth to date
- tissue culture no growth to date, lab will hold to two weeks
- c/w ceftriaxone plan a tentative 6 week course
- will reassess at around 4 weeks, if no improvement could consider switch to alterantive regimen
- weekly cbc, cmp, esr, crp to be sent to my office
- PICC is ordered
- stable for dc when home IV antibiotics are arranged
Chief Complaint
-: Other (possible OM/discitis)
Subjective / Review of Systems
afebrile
bp stable
Vital Signs / Physical Exam
Vital Signs
Vital Signs
Temp Pulse Resp BP Pulse Ox
98.7 F 78 18 105/68 98
07/12/24 11:49 07/12/24 11:49 07/12/24 11:49 07/12/24 11:49 07/12/24 11:49
Physical Exam
Constitutional: No Acute Distress
Cardiovascular: Regular Rate and S1/S2; Negative Murmur or Rub
Pulmonary: Clear and Symmetric; Negative Wheezes or Rales
Gastrointestinal: Soft, Non Tender, Non Distended and Normal Bowel Sounds
Skin: Warm and Dry; Negative Rash or Jaundice
Objective Data
Lab Data
Lab Results
07/11/24 08:48
07/11/24 08:48
ESR 38 mm/hour (0-20) H 07/05/24 06:32
PT 14.3 Sec (11.4-14.6) 07/05/24 21:21
INR 1.06 07/05/24 21:21
Estimated Creat Clear 110 ml/min 07/11/24 08:48
Total Bilirubin 2.8 mg/dl (0.2-1.3) H 06/30/24 01:59
AST 29 U/L (17-59) 06/30/24 01:59
ALT 17 U/L (0-50) 06/30/24 01:59
Alkaline Phosphatase 58 U/L (38-126) 06/30/24 01:59
C-Reactive Protein 47.30 mg/L (0.0-10.00) H 07/05/24 06:32
Most recent labs reviewed.
Micro Results:
07/06/24 09:05 Wound Culture - Preliminary
Tissue No growth
Gram Stain - Final
07/06/24 09:05 Anaerobic Culture - Preliminary
Tissue Culture pending. Anaerobic cultures are examined after 3
days incubation. Additional information to follow.
07/01/24 10:47 Blood Culture - Final
Blood/Venous No Growth - Final Report
07/01/24 10:38 Blood Culture - Final
Blood/Venous No Growth - Final Report
06/30/24 08:24 Respiratory Culture - Final
Sputum Usual Respiratory Grace
Gram Stain - Final
06/30/24 01:59 Urine Culture - Final
Urine Diptheroids
06/30/24 06:19 Legionella Urinary Antigen - Final
Urine Negative for Legionella pneumophila Serogroup 1 antigen.
A negative result does not rule out the possiblity of
Legionella infection due to other serogroups or species of
Legionella. Clinical correlation is recommended.
06/30/24 01:16 Influenza Types A & B ([facility]) - Final
Nasal Swab Negative for Influenza A & B, NAAT
Negative results must be combined with clinical observations
and patient history.
Nucleic Acid Amplification test (NAAT)performed on the
[employer] platform.
--- NOTE | 2024-07-12 14:53 | W.PN.HOSP.TC ---
Today's Communication/Plan
-
Discharge
Assessment / Plan
Assessment / Plan
CVS: S1-S2 normal
Chest: CTA B/L
Abdomen: Soft, NT / Bowel sounds present
Extremities: edema better
#sepsis likely 2/2 Possible L4/L5 osteomyelitis/discitis -poa
Recent exposure to antibiotics. Blood cultures have been negative so far. Status post IR drainage. not much fluid was able to be drained. Follow-up on the culture data. Not enough fluids for all studies.
Blood cultures and cultures so far negative
Needs long-term antibiotic per ID
Continue Rocephin 2 g daily
Picc placed
#Diarrhea: Patient had 1 episodes of the nonbloody loose stool.
History of colitis admit he got used to these kind of diarrhea sometimes takes Imodium.
Watch
# Generalized weakness/fall
# Back pain likely secondary to above versus lumbar radiculopathy
Knee x-ray degenerative changes. No fracture
Chest x-ray without any pneumonia
X-ray of the spine without any acute changes
PT OT
# Nonischemic myocardial injury likely in the setting of uncontrolled blood pressure
Cardiology evaluation appreciated and signed off. No further intervention required
Echo 06/30/2024-normal LV size and mild concentric remodeling. Asymmetric septal hypertrophy with normal LV systolic function. EF 50 to 55%. Stage II diastolic dysfunction. Normal RV size and function. Calcified possibly bicuspid aortic valve
with sclerosis without stenosis. IVC is moderately dilated and blunted with inspiratory collapse. Right atrial pressure 15 mmHg
# Chronic venous stasis changes of lower extremity. Patient states that he cannot take Lasix because he goes to the bathroom too many times. Francisco bandages . Lasix as needed.Will give Lasix for home. He can atleast take PRN ( He wont take daily)
# Pacemaker
# Paroxysmal atrial fibrillation s/p PPM, -continue dofetilide, Coreg and Xarelto. History of cardioversion in the past
# Chronic HFpEF he is on Entresto-Cardiology eval noted.
# Enlarged prostate-continue Flomax and dutasteride
# Morbid obesity with a BMI of 43
# Likely has Sleep apnea- Says he needs a sleep study.
# Diverticulosis
# Nephrolithiasis
# Gout-continue allopurinol
# Ex-smoker
# DVT prophylaxis-Xarelto
# Full code
D/W RN
D/W Case management
D/W daughter updated re plans yesterday
Pt wants to go home and not to rehab
Antibiotics are being dropped off today to start infusion at home tomorrow
He is aware about fluid restriction and Lasix
Prescription for lab work weekly for the results to be sent to infectious disease given
More than 30 minutes spent in discharge including
Final examination of the patient
Summarizing hospital stay
Instructions for continuing care to all relevant caregivers
Preparation of discharge records, prescriptions, and referral forms
Total time spent (in minutes): 40 min
Anticipated Discharge: Today
Subjective/Interval History
-
Date of Service: July 12, 2024
Objective Data
-
Vital Signs:
Vital Signs
Temp Pulse Resp BP Pulse Ox
98.7 F 78 18 105/68 98
07/12/24 11:49 07/12/24 11:49 07/12/24 11:49 07/12/24 11:49 07/12/24 11:49
I&O
07/11/24 07/12/24 07/13/24
06:59 06:59 06:59
Intake Total 720 / 720 960 / 960
Output Total 850 / 850 125 / 1050 925 / 925
Balance -130 / -130 835 / -90 -925 / -925
[2024-07-12 15:02] VITALS: BP 114/69
[2024-07-12] MEDS: STERILE WATER FOR INJECTION 20 ML IV (16:00)
[2024-07-12] MEDS: ROCEPHIN 2000 MG IV (16:00)
[2024-07-12] MEDS: FLUSH (NSS) 1 FLUSH IV (16:03)
--- NOTE | 2024-07-12 16:11 | W.DS.TRANS ---
Addendum entered and electronically signed by Jahaira Ceballos MD 07/12/24 16:36:
Dictation- [id number]
Original Note:
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
-
Discharge Instructions:
Sleep Apnea Risk Intermediate
Discharge Diagnosis/Procedures L4-5 osteomyelitis/discitis
Left lower extremity cellulitis
Chronic venous stasis lower extremity
Atrial fibrillation
Enlarged prostate
Diverticulosis
Gout
Pacemaker
Gallstones
Urinary bladder stone, kidney stones
Hiatal hernia
Diet Restrict fluids to 64 oz,2 Gram Sodium
Activity As tolerated
Driving Restrictions No driving
Blood Work weekly cbc, cmp, esr, crp to be sent to
[facility] office
Other Services VN,PT,OT
Specialty Instructions Weigh Daily
Instructions:
Stand-Alone Forms:
Changes to Home Medications: Yes
Discharge Medications:
DC Medications w/original date entered in [facility]
allopurinol 300 mg tablet 300 mg PO DAILY Gout 12/19/12
dutasteride 0.5 mg capsule 0.5 mg PO DAILY BPH 12/19/12
rivaroxaban 20 mg tablet (Xarelto) 20 mg PO HS Blood Clot Prevention/Tx 12/19/12
tamsulosin 0.4 mg capsule 0.4 mg PO DAILY BPH 12/04/13
dofetilide 500 mcg capsule 500 mcg PO Q12H Arrhythmia 01/16/23
sacubitril 49 mg-valsartan 51 mg tablet (Entresto) 1 tab PO BID Heart Disease/Condition 01/16/23
Lactobac/Bifidobac [Visbiome] 2 cap PO DAILY Supplement ##0 07/11/24
acetaminophen 500 mg tablet (Tylenol Extra Strength) 1,000 mg (2 x 500 mg) PO Q6HPRN PRN pain #0 tabs 07/11/24
carvedilol 6.25 mg tablet 6.25 mg PO BID Heart disease/condition #0 tabs 07/11/24
ceftriaxone 2 gram solution for injection 2,000 mg IV Q24H Infection #0 ea 07/11/24
cyclobenzaprine 10 mg tablet 5 mg (1/2 x 10 mg) PO Q8HPRN PRN spasm #15 tabs 07/11/24
furosemide 20 mg tablet (Lasix) 20 mg PO Q OTHER DAY PRN fluid rtention #30 tabs 07/11/24
lidocaine 4 % topical patch 1 patch topical DAILY back pain #0 ea 07/11/24
potassium chloride 10 mEq tablet,extended release 10 meq PO DAILY Electrolyte Repletion #30 tabs 07/12/24
Home Medication Changes
Lasix is new
Ceftriaxone is new
Flexeril is new
Pending Results: No
== END 2024-07-12 17:43 | disposition home or self-care (01) | DRG 872 ==
LOC: 4 EAST ACU 05:18
PROVIDERS: Hospitalist; Nurse Practitioner Family; Radiology Diagnostic Radiology; Radiology Vascular & Interventional Radiology; ADMITTING PHYSICIAN Internal Medicine; ATTENDING PHYSICIAN Hospitalist; CONSULT PHYSICIAN Internal Medicine; EMERGENCY PHYSICIAN Student in an Organized Health Care Education/Training Program; FAMILY PHYSICIAN Nurse Practitioner Family; OTHER PHYSICIAN Student in an Organized Health Care Education/Training Program
PROC: 0S903ZX Drainage of Lumbar Vertebral Joint, Percutaneous Approach, Diagnostic (ICD-10-PCS; 2024-07-06)
PROC: 02HV33Z Insertion of Infusion Device into Superior Vena Cava, Percutaneous Approach (ICD-10-PCS; 2024-07-11)
DX: A41.9 Sepsis, unspecified organism (principal); M46.26 Osteomyelitis of vertebra, lumbar region; L03.116 Cellulitis of left lower limb; I5A Non-ischemic myocardial injury (non-traumatic); I50.32 Chronic diastolic (congestive) heart failure; Z68.41 Body mass index [BMI] 40.0-44.9, adult; M46.46 Discitis, unspecified, lumbar region; I87.8 Other specified disorders of veins; I48.0 Paroxysmal atrial fibrillation; N40.0 Benign prostatic hyperplasia without lower urinary tract symptoms; K57.30 Diverticulosis of large intestine without perforation or abscess without bleeding; M10.9 Gout, unspecified; I49.5 Sick sinus syndrome; N20.0 Calculus of kidney; N21.0 Calculus in bladder; I11.0 Hypertensive heart disease with heart failure; E78.00 Pure hypercholesterolemia, unspecified; G47.30 Sleep apnea, unspecified; E66.813 Obesity, class 3; K44.9 Diaphragmatic hernia without obstruction or gangrene; K52.9 Noninfective gastroenteritis and colitis, unspecified; Z87.891 Personal history of nicotine dependence; Z11.52 Encounter for screening for COVID-19; Z95.0 Presence of cardiac pacemaker; Z88.1 Allergy status to other antibiotic agents; Z88.0 Allergy status to penicillin; Z88.7 Allergy status to serum and vaccine; Z91.199 Patient's noncompliance with other medical treatment and regimen due to unspecified reason; Z79.01 Long term (current) use of anticoagulants; Z79.899 Other long term (current) drug therapy
CPT/HCPCS: 62267; 71045; 71046; 72110; 72148; 73564; 74176; 77002; 80048; 80053; 81003; 81015; 82306; 82607; 83735; 83880; 84145; 84484; 85025; 85027; 85610; 85652; 86140; 87040; 87070; 87075; 87086; 87205; 87449; 87502; 87811; 88112; 93005; 93306; 96361; 96365; 96375; 97110; 97116; 97163; 97167; 97530; 97535; 99152; 99153; 99285; Q9950